=== PATIENT | female | born 1990 | race Caucasian/White ===

== ENCOUNTER → 2016-09-25 | Outpatient (CLI) | payer SELFPAY ==
[2016-09-25 15:23] LABS: CHLAM PCR NOT DETECTED (NOT DETECT)
== END ==
LOC: LAB 13:39
PROVIDERS: ATTEND Nurse Practitioner Acute Care
DX: N89.8 Other specified noninflammatory disorders of vagina (principal)
CPT/HCPCS: 87086; 87088; 87210; 87491; 87591

== ENCOUNTER 2017-07-11 19:39 | Emergency (ER) | payer MEDICAID, OTHER ==
[2017-07-11] MEDS ORDERED: ONDANSETRON HCL 8 MG TABLET ONE (20:30)
[2017-07-11] MEDS ORDERED: ACETAMINOPHEN 325 MG TABLET ONE (20:30)
[2017-07-12 02:45] LABS: ABSOLUTE EOSINOPHILS # (AUTO) 0.5 10^3/uL (0.0-0.6); ABSOLUTE LYMPHOCYTES (AUTO) 2.4 10^3/uL (0.5-4.7); ABSOLUTE MONOCYTES (AUTO) 0.8 10^3/uL (0.1-1.4); ABSOLUTE NEUT (AUTO) 6.8 10^3/uL (1.7-8.2); BASOPHILS % (AUTO) 0.4 % (0-2); HEMATOCRIT 36.6 % (36.0-47.0); HEMOGLOBIN 11.9 g/dL (12.0-15.5); LYMPHOCYTES % (AUTO) 22.5 % (13-45); MEAN CORPUSCULAR HEMOGLOBIN 24.6 pg (27.0-33.4); MEAN CORPUSCULAR HGB CONC 32.6 g/dL (32.0-36.0); MEAN CORPUSCULAR VOLUME 75 fl (80-97); MONOCYTES % (AUTO) 7.3 % (3-13); PLATELET COUNT 227 10^3/uL (150-450); RED BLOOD COUNT 4.85 10^6/uL (3.72-5.28); RED CELL DISTRIBUTION WIDTH 15.3 % (11.5-14.0); SEGMENTED NEUTROPHILS % (AUTO) 64.8 % (42-78); TOTAL CELLS COUNTED % (AUTO) 100 %; WHITE BLOOD COUNT 10.5 10^3/uL (4.0-10.5)
--- NOTE | 2017-07-12 03:14 | RADIOLOGY REPORT (SQ) ---
EXAM DESCRIPTION: U/S OB TRANSVAGINAL W/O DOP CLINICAL HISTORY: 26 years, Female, BLEEDING, LLQ PAIN COMPARISON: None. TECHNIQUE: Transvaginal. LIMITATIONS: None. FINDINGS: No definite intrauterine identified. There is an intrauterine sac and possible decidual reaction which may represent a gestational sac. No yolk sac. No pole. No cardiac flicker. If viable, this intrauterine sac has a mean sac diameter of 7.5 mm which would correspond with a gestational age of five weeks and four days. 2.8 cm right ovary, and 3.2 cm left ovary appear unremarkable. No free fluid. IMPRESSION: No definite intrauterine . Differential diagnosis includes very early viable intrauterine gestational sac, gestational loss, or occult ectopic gestation. 48 to 72 hour laboratory/sonographic surveillance recommended. 2010 [employer]- All Rights Reserved
[2017-07-12 09:10] LABS: CALCIUM 9.7 mg/dL (8.4-10.2)
[2017-07-12 09:11] LABS: ALBUMIN 4.1 g/dL (3.5-5.0); ANION GAP 11 (5-19); ASPARTATE AMINO TRANSFERASE 16 U/L (14-36); BLOOD UREA NITROGEN 10 mg/dL (7-20); CARBON DIOXIDE 26 mmol/L (22-30); CHLORIDE 102 mmol/L (98-107); GLUCOSE 98 mg/dL (75-110); POTASSIUM 4.2 mmol/L (3.6-5.0); SODIUM 139.1 mmol/L (137-145)
[2017-07-12 09:12] LABS: ALANINE AMINOTRANSFERASE 24 U/L (9-52); ALKALINE PHOSPHATASE 64 U/L (38-126); BILIRUBIN,DIRECT 0.2 mg/dL (0.0-0.4); BILIRUBIN,TOTAL 0.2 mg/dL (0.2-1.3)
== END 2017-07-11 22:00 | disposition home or self-care (01) ==
LOC: ER 19:39
DX: O26.91 Pregnancy related conditions, unspecified, first trimester (principal); R10.2 Pelvic and perineal pain
CPT/HCPCS: 36415; 76817; 80053; 84702; 85025; 99284

== ENCOUNTER 2017-08-16 13:38 | Emergency (ER) | payer OTHER, MEDICAID ==
--- NOTE | 2017-08-16 15:14 | EKG REPORT ---
SEVERITY:- NORMAL ECG - SINUS RHYTHM : Confirmed by: Lucius Marshall 16-Aug-2017 15:13:28
[2017-08-16 15:37] LABS: ABSOLUTE EOSINOPHILS # (AUTO) 0.3 10^3/uL (0.0-0.6); ABSOLUTE LYMPHOCYTES (AUTO) 1.6 10^3/uL (0.5-4.7); ABSOLUTE MONOCYTES (AUTO) 0.8 10^3/uL (0.1-1.4); ABSOLUTE NEUT (AUTO) 7.6 10^3/uL (1.7-8.2); BASOPHILS % (AUTO) 0.4 % (0-2); EOSINOPHILS % (AUTO) 3.1 % (0-6); HEMATOCRIT 37.3 % (36.0-47.0); HEMOGLOBIN 12.1 g/dL (12.0-15.5); LYMPHOCYTES % (AUTO) 15.5 % (13-45); MEAN CORPUSCULAR HEMOGLOBIN 24.4 pg (27.0-33.4); MEAN CORPUSCULAR HGB CONC 32.5 g/dL (32.0-36.0); MEAN CORPUSCULAR VOLUME 75 fl (80-97); MONOCYTES % (AUTO) 7.5 % (3-13); PLATELET COUNT 221 10^3/uL (150-450); RED BLOOD COUNT 4.95 10^6/uL (3.72-5.28); RED CELL DISTRIBUTION WIDTH 15.6 % (11.5-14.0); SEGMENTED NEUTROPHILS % (AUTO) 73.5 % (42-78); TOTAL CELLS COUNTED % (AUTO) 100 %; WHITE BLOOD COUNT 10.4 10^3/uL (4.0-10.5)
[2017-08-16 15:43] LABS: AMORPHOUS SEDIMENT,URINE TRACE /HPF; APPEARANCE,URINE SLIGHTLY-CLOUDY; BILIRUBIN,URINE NEGATIVE (NEGATIVE); COLOR,URINE YELLOW; GLUCOSE, URINE NEGATIVE (NEGATIVE); KETONES,URINE NEGATIVE (NEGATIVE); LEUKOCYTE ESTERASE,URINE LARGE (NEGATIVE); NITRITE,URINE NEGATIVE (NEGATIVE); PROTEIN,URINE NEGATIVE (NEGATIVE); URINE SPECIFIC GRAVITY 1.006; UROBILINOGEN,URINE NEGATIVE mg/dL (<2.0)
[2017-08-16 15:53] LABS: ALANINE AMINOTRANSFERASE 25 U/L (9-52); ALBUMIN 4.5 g/dL (3.5-5.0); ALKALINE PHOSPHATASE 67 U/L (38-126); ANION GAP 12 (5-19); ASPARTATE AMINO TRANSFERASE 16 U/L (14-36); BILIRUBIN,TOTAL 0.3 mg/dL (0.2-1.3); BLOOD UREA NITROGEN 7 mg/dL (7-20); CALCIUM 10.1 mg/dL (8.4-10.2); CARBON DIOXIDE 24 mmol/L (22-30); CHLORIDE 103 mmol/L (98-107); GLUCOSE 91 mg/dL (75-110); POTASSIUM 4.1 mmol/L (3.6-5.0); SODIUM 138.5 mmol/L (137-145); TOTAL PROTEIN 7.3 g/dL (6.3-8.2)
--- NOTE | 2017-08-16 16:52 | ER Document Report ---
ED Dizziness/Weakness - General Chief Complaint: General Weakness Stated Complaint: WEAK FEELING Time Seen by Provider: 08/16/17 14:54 Mode of Arrival: Ambulatory Information source: Patient Notes: Patient presents complaining of generalized fatigue and weakness. She also is approximately 3 months she states. She denies any vaginal bleeding or discharge. No significant abdominal pain. Symptoms are worse with exertion and better with rest. There is no radiation symptoms. They are mild to moderate and intermittent. Some nausea and vomiting but no diarrhea. TRAVEL OUTSIDE OF THE [place] IN LAST 30 DAYS: No - Related Data Allergies/Adverse Reactions: No Known Allergies Allergy (Verified 08/16/17 14:04) Past Medical History - General Information source: Patient - Social History Smoking Status: Never Smoker Chew tobacco use (# tins/day): No Frequency of alcohol use: None Drug Abuse: None Family History: Arthritis, CAD, COPD, CVA, DM, Hyperlipidemia, Hypertension, Malignancy Patient has suicidal ideation: No Patient has homicidal ideation: No - Past Medical History Cardiac Medical History: Reports: Hx Hypertension Pulmonary Medical History: Reports: Hx Asthma Renal/ Medical History: Denies: Hx Peritoneal Dialysis GI Medical History: Reports: Hx Irritable Bowel Psychiatric Medical History: Reports: Hx Anxiety, Hx Post Traumatic Stress Disorder - Immunizations Hx Diphtheria, Pertussis, Tetanus Vaccination: Yes Review of Systems - Review of Systems Constitutional: Malaise, Weakness Cardiovascular: Palpitations. denies: Chest pain Respiratory: denies: Cough, Short of breath Gastrointestinal: Nausea, Vomiting -: Yes All other systems reviewed and negative Physical Exam - Vital signs Vitals: Temp Pulse Resp BP Pulse Ox 98.2 F 85 18 101/66 100 08/16/17 14:21 08/16/17 14:21 08/16/17 14:21 08/16/17 14:21 08/16/17 14:21 Interpretation: Normal - General General appearance: Appears well, Alert - HEENT Head: Normocephalic, Atraumatic Eyes: Normal Pupils: PERRL - Respiratory Respiratory status: No respiratory distress Chest status: Nontender Breath sounds: Normal Chest palpation: Normal - Cardiovascular Rhythm: Regular Heart sounds: Normal auscultation Murmur: No - Abdominal Inspection: Normal Distension: No distension Bowel sounds: Normal Tenderness: Nontender Organomegaly: No organomegaly - Back Back: Normal, Nontender - Extremities General upper extremity: Normal inspection, Nontender, Normal color, Normal ROM , Normal temperature General lower extremity: Normal inspection, Nontender, Normal color, Normal ROM , Normal temperature, Normal weight bearing. No: Angelika's sign - Neurological Neuro grossly intact: Yes Cognition: Normal Orientation: AAOx4 [place] Coma Scale Eye Opening: Spontaneous Nick Coma Scale Verbal: Oriented [place] Coma Scale Motor: Obeys Commands Nick Coma Scale Total: 15 Speech: Normal Motor strength normal: LUE, RUE, LLE, RLE Sensory: Normal - Psychological Associated symptoms: Normal affect, Normal mood - Skin Skin Temperature: Warm Skin Moisture: Dry Skin Color: Normal Course - Vital Signs Vital signs: Temp Pulse Resp BP Pulse Ox 98.2 F 85 18 101/66 100 08/16/17 14:21 08/16/17 14:21 08/16/17 14:21 08/16/17 14:21 08/16/17 14:21 - Laboratory Result Diagrams: 08/16/17 15:18 08/16/17 15:18 Laboratory results interpreted by me: 08/16/17 08/16/17 15:18 15:18 MCV 75 L MCH 24.4 L RDW 15.6 H Ur Leukocyte Esterase LARGE H Discharge - Discharge Clinical Impression: UTI (urinary tract infection) Qualifiers: Urinary tract infection type: site unspecified Hematuria presence: with hematuria Qualified Code(s): N39.0 - Urinary tract infection, site not specified ; R31.9 - Hematuria, unspecified; R31.9 - Hematuria, unspecified Condition: Stable Disposition: HOME, SELF-CARE Instructions: Urinary Tract Infection ([facility]) Additional Instructions: Please 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 If you continue to have palpitations, then please discuss referral to cardiology for possible event monitoring. Prescriptions: Metoclopramide HCl [Reglan 10 mg Tablet] 1 - 2 tab PO Q6 #25 tablet Nitrofurantoin Monohyd/M-Cryst [Macrobid 100 mg Capsule] 100 mg PO BID 7 Days # 14 capsule Forms: Return to Work
[2017-08-16 16:58] VITALS: BP 110/67
== END 2017-08-16 16:58 | disposition home or self-care (01) ==
LOC: ER 13:38
DX: N39.0 Urinary tract infection, site not specified (principal); R31.9 Hematuria, unspecified; R53.1 Weakness; R53.83 Other fatigue; R11.2 Nausea with vomiting, unspecified
CPT/HCPCS: 36415; 80053; 81001; 85025; 93005; 93010; 99285

== ENCOUNTER → 2017-09-21 | Outpatient (CLI) | payer MEDICAID ==
[2017-09-21 19:40] LABS: BACTERIA (WET MOUNT) 3+ BACTERIA SEEN; EPITHELIALS (WET MOUNT) 4+ EPITHELIALS SEEN; T.VAGINALIS (WET MOUNT) NO TRICHOMONAS SEEN; WBCS (WET MOUNT) 4+ WBCS SEEN; YEAST (WET MOUNT) NO YEAST SEEN
[2017-09-21 21:11] LABS: CHLAM PCR NOT DETECTED (NOT DETECT); GON PCR NOT DETECTED (NOT DETECT)
== END ==
LOC: LAB 19:18
PROVIDERS: ATTEND Nurse Practitioner Acute Care
DX: N89.8 Other specified noninflammatory disorders of vagina (principal); R30.0 Dysuria
CPT/HCPCS: 87086; 87088; 87186; 87210; 87491; 87591

== ENCOUNTER 2017-11-10 14:04 | Outpatient (CLI) | payer MEDICAID ==
[2017-11-10 15:11] LABS: APPEARANCE,URINE SLIGHTLY-CLOUDY; BILIRUBIN,URINE NEGATIVE (NEGATIVE); COLOR,URINE STRAW; GLUCOSE, URINE NEGATIVE (NEGATIVE); KETONES,URINE NEGATIVE (NEGATIVE); LEUKOCYTE ESTERASE,URINE MODERATE (NEGATIVE); NITRITE,URINE NEGATIVE (NEGATIVE); PROTEIN,URINE NEGATIVE (NEGATIVE); URINE SPECIFIC GRAVITY 1.005; UROBILINOGEN,URINE NEGATIVE mg/dL (<2.0)
[2017-11-10] MEDS ORDERED: ACETAMINOPHEN 325 MG TABLET ONE (15:47)
[2017-11-10 15:56] LABS: URINE AMPHETAMINES SCREEN NEGATIVE; URINE BARBITURATES SCREEN NEGATIVE; URINE BENZODIAZEPINES SCREEN NEGATIVE; URINE MARIJUANA (THC) SCREEN NEGATIVE; URINE METHADONE SCREEN NEGATIVE; URINE PHENCYCLIDINE SCREEN NEGATIVE
[2017-11-10 16:21] LABS: URINE COCAINE SCREEN NEGATIVE
== END 2017-11-10 16:00 | disposition home or self-care (01) ==
LOC: LC 14:04
PROVIDERS: ATTEND Obstetrics & Gynecology Gynecology
PROC: 4A1HXCZ Monitoring of Products of Conception, Cardiac Rate, External Approach (ICD-10-PCS; principal; 2017-11-10)
DX: Z34.92 Encounter for supervision of normal pregnancy, unspecified, second trimester (principal)
CPT/HCPCS: 59899; 81001; 80307; J3490

== ENCOUNTER 2017-11-19 19:53 | Outpatient (CLI) | payer MEDICAID ==
[2017-11-19 20:29] LABS: APPEARANCE,URINE CLEAR; BILIRUBIN,URINE NEGATIVE (NEGATIVE); COLOR,URINE YELLOW; GLUCOSE, URINE NEGATIVE (NEGATIVE); KETONES,URINE NEGATIVE (NEGATIVE); LEUKOCYTE ESTERASE,URINE TRACE (NEGATIVE); NITRITE,URINE NEGATIVE (NEGATIVE); PROTEIN,URINE NEGATIVE (NEGATIVE); URINE SPECIFIC GRAVITY 1.019
[2017-11-19 20:42] LABS: URINE AMPHETAMINES SCREEN NEGATIVE; URINE BARBITURATES SCREEN NEGATIVE; URINE BENZODIAZEPINES SCREEN NEGATIVE; URINE COCAINE SCREEN NEGATIVE; URINE MARIJUANA (THC) SCREEN NEGATIVE; URINE METHADONE SCREEN NEGATIVE; URINE PHENCYCLIDINE SCREEN NEGATIVE
== END 2017-11-19 21:08 | disposition home or self-care (01) ==
LOC: LC 19:53
PROVIDERS: ATTEND Obstetrics & Gynecology Gynecology
PROC: 4A1HXCZ Monitoring of Products of Conception, Cardiac Rate, External Approach (ICD-10-PCS; principal; 2017-11-19)
DX: O47.02 False labor before 37 completed weeks of gestation, second trimester (principal); Z3A.24 24 weeks gestation of pregnancy
CPT/HCPCS: 80307; 81001

== ENCOUNTER 2017-12-15 16:37 | Emergency (ER) | payer MEDICAID ==
[2017-12-15] MEDS ORDERED: NORMAL SALINE 1000 ML 1,000 ML IV ONE (17:40)
--- NOTE | 2017-12-15 17:42 | ER Document Report ---
ED Medical Screen (RME) - General Chief Complaint: Weakness Stated Complaint: WEAKNESS/BLURRY VISION Time Seen by Provider: 12/15/17 17:39 TRAVEL OUTSIDE OF THE [place] IN LAST 30 DAYS: No - HPI Notes: 12/15/17 17:41 Patient coming in for weakness blurry vision recently diagnosed gestational diabetes started on insulin states symptoms worsened today his blood sugars been running between 100-200s. Patient states great confusion about her insulin dosing. Patient otherwise denies any fevers chills nausea vomiting diarrhea - Related Data Allergies/Adverse Reactions: No Known Allergies Allergy (Verified 12/15/17 17:34) Past Medical History - Past Medical History Cardiac Medical History: Reports: Hx Hypertension Pulmonary Medical History: Reports: Hx Asthma Renal/ Medical History: Denies: Hx Peritoneal Dialysis GI Medical History: Reports: Hx Irritable Bowel Psychiatric Medical History: Reports: Hx Anxiety, Hx Post Traumatic Stress Disorder - Immunizations Hx Diphtheria, Pertussis, Tetanus Vaccination: Yes Review of Systems - Review of Systems Constitutional: Weakness, Other - Dizziness Physical Exam - General General appearance: Appears well In distress: None Doctor's Discharge - Discharge Referrals: VIRGINIE GONZALEZ MD [Primary Care Provider] - Follow up as needed
[2017-12-15 18:36] LABS: ABSOLUTE EOSINOPHILS # (AUTO) 0.3 10^3/uL (0.0-0.6); ABSOLUTE LYMPHOCYTES (AUTO) 1.3 10^3/uL (0.5-4.7); ABSOLUTE MONOCYTES (AUTO) 0.9 10^3/uL (0.1-1.4); ABSOLUTE NEUT (AUTO) 6.2 10^3/uL (1.7-8.2); BASOPHILS % (AUTO) 0.5 % (0-2); HEMATOCRIT 34.4 % (36.0-47.0); HEMOGLOBIN 11.3 g/dL (12.0-15.5); LYMPHOCYTES % (AUTO) 15.4 % (13-45); MEAN CORPUSCULAR HEMOGLOBIN 24.9 pg (27.0-33.4); MEAN CORPUSCULAR HGB CONC 32.8 g/dL (32.0-36.0); MEAN CORPUSCULAR VOLUME 76 fl (80-97); MONOCYTES % (AUTO) 9.9 % (3-13); PLATELET COUNT 135 10^3/uL (150-450); RED BLOOD COUNT 4.54 10^6/uL (3.72-5.28); SEGMENTED NEUTROPHILS % (AUTO) 71.2 % (42-78); TOTAL CELLS COUNTED % (AUTO) 100 %; WHITE BLOOD COUNT 8.7 10^3/uL (4.0-10.5)
[2017-12-15 18:49] LABS: APPEARANCE,URINE CLEAR; BILIRUBIN,URINE NEGATIVE (NEGATIVE); COLOR,URINE YELLOW; GLUCOSE, URINE NEGATIVE (NEGATIVE); KETONES,URINE NEGATIVE (NEGATIVE); LEUKOCYTE ESTERASE,URINE MODERATE (NEGATIVE); NITRITE,URINE NEGATIVE (NEGATIVE); PROTEIN,URINE NEGATIVE (NEGATIVE); UROBILINOGEN,URINE NEGATIVE mg/dL (<2.0)
[2017-12-15 18:56] LABS: ALANINE AMINOTRANSFERASE 18 U/L (9-52); ALBUMIN 3.6 g/dL (3.5-5.0); ALKALINE PHOSPHATASE 62 U/L (38-126); ANION GAP 10 (5-19); ASPARTATE AMINO TRANSFERASE 20 U/L (14-36); BILIRUBIN,DIRECT 0.2 mg/dL (0.0-0.4); BILIRUBIN,TOTAL 0.3 mg/dL (0.2-1.3); BLOOD UREA NITROGEN 10 mg/dL (7-20); CALCIUM 9.6 mg/dL (8.4-10.2); CARBON DIOXIDE 24 mmol/L (22-30); CHLORIDE 105 mmol/L (98-107); GLUCOSE 99 mg/dL (75-110); POTASSIUM 4.1 mmol/L (3.6-5.0); SODIUM 138.6 mmol/L (137-145); TOTAL PROTEIN 6.9 g/dL (6.3-8.2)
[2017-12-15] MEDS ORDERED: CEPHALEXIN 500 MG CAPSULE PO ONE (19:38)
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
[2017-12-15 19:43] VITALS: BP 102/67
== END 2017-12-15 19:47 | disposition home or self-care (01) ==
LOC: ER 16:37
DX: O26.892 Other specified pregnancy related conditions, second trimester (principal); R42 Dizziness and giddiness; R82.71 Bacteriuria; O24.414 Gestational diabetes mellitus in pregnancy, insulin controlled; O16.2 Unspecified maternal hypertension, second trimester; O99.512 Diseases of the respiratory system complicating pregnancy, second trimester; J45.909 Unspecified asthma, uncomplicated
CPT/HCPCS: 99284; 96360; 36415; 82962; 85025; 80053; 81001; J7030

== ENCOUNTER 2017-12-21 23:43 | Emergency (ER) | payer MEDICAID ==
--- NOTE | 2017-12-22 09:38 | EKG REPORT ---
SEVERITY:- BORDERLINE ECG - SINUS RHYTHM PROBABLE LEFT ATRIAL ABNORMALITY : Confirmed by: Lucius Marshall 22-Dec-2017 09:37:36
== END 2017-12-22 01:30 | disposition left against medical advice (07) ==
LOC: ER 23:43
DX: Z53.21 Procedure and treatment not carried out due to patient leaving prior to being seen by health care provider (principal)
CPT/HCPCS: 93005; 93010

== ENCOUNTER 2018-01-09 08:58 | Outpatient (CLI) | payer OTHER, MEDICAID ==
[2018-01-09 10:19] LABS: APPEARANCE,URINE CLOUDY; BILIRUBIN,URINE NEGATIVE (NEGATIVE); COLOR,URINE YELLOW; GLUCOSE, URINE NEGATIVE (NEGATIVE); KETONES,URINE NEGATIVE (NEGATIVE); LEUKOCYTE ESTERASE,URINE LARGE (NEGATIVE); NITRITE,URINE NEGATIVE (NEGATIVE); PROTEIN,URINE 30 mg/dL (NEGATIVE); URINE SPECIFIC GRAVITY 1.018; UROBILINOGEN,URINE NEGATIVE mg/dL (<2.0)
[2018-01-09 10:46] LABS: URINE AMPHETAMINES SCREEN NEGATIVE; URINE BARBITURATES SCREEN NEGATIVE; URINE BENZODIAZEPINES SCREEN NEGATIVE; URINE COCAINE SCREEN NEGATIVE; URINE MARIJUANA (THC) SCREEN NEGATIVE; URINE METHADONE SCREEN NEGATIVE; URINE PHENCYCLIDINE SCREEN NEGATIVE
--- NOTE | 2018-01-09 11:37 | RADIOLOGY REPORT (SQ) ---
EXAM DESCRIPTION: U/S OB LIMITED COMPLETED DATE/TIME: 01/09/2018 11:19 am REASON FOR STUDY: vaginal pain/pressure, need cervical length COMPARISON: None. TECHNIQUE: Limited transvaginal and transabdominal grayscale ultrasound for evaluation of specific r equested obstetrical parameters. LIMITATIONS: Patient body habitus and overlying bowel gas FINDINGS: CERVICAL LENGTH: The cervix is not well visualized secondary to patient body habitus howev er the cervical length appears to be 4.4 cm and the cervix appears to be closed. FHR: 143 beats per minute. PRESENTATION: Transverse. OTHER: No other significant findings. IMPRESSION: LIMITED OBSTETRICAL ULTRASOUND WITH MEASURED PARAMETERS DELINEATED ABOVE. Trimester of : Third trimester - 28 weeks to delivery. TECHNICAL DOCUMENTATION: JOB ID: [id number] [employer]- All Rights Reserved Reading location - IP/workstation name: [email or web address]
== END 2018-01-09 14:30 | disposition home or self-care (01) ==
LOC: LC 08:58
PROVIDERS: ATTEND Student in an Organized Health Care Education/Training Program
PROC: 4A1HXCZ Monitoring of Products of Conception, Cardiac Rate, External Approach (ICD-10-PCS; principal; 2018-01-09)
DX: O26.893 Other specified pregnancy related conditions, third trimester (principal); R10.2 Pelvic and perineal pain; Z3A.30 30 weeks gestation of pregnancy
CPT/HCPCS: 76815; 80307; 81001; 82731; 87081; 87086

== ENCOUNTER 2018-01-17 15:44 | Outpatient (CLI) | payer OTHER, MEDICAID | END 2018-01-17 16:42 | disposition home or self-care (01) | LOC: LC 15:44 | PROVIDERS: ATTEND Obstetrics & Gynecology | PROC: 4A1HXCZ Monitoring of Products of Conception, Cardiac Rate, External Approach (ICD-10-PCS; principal; 2018-01-17) | DX: O24.419 Gestational diabetes mellitus in pregnancy, unspecified control (principal); Z3A.32 32 weeks gestation of pregnancy | CPT/HCPCS: 59025 ==

== ENCOUNTER 2018-01-25 10:37 | Outpatient (CLI) | payer OTHER, MEDICAID ==
--- NOTE | 2018-01-25 10:51 | Non Stress Test Report ---
Non Stress Test Datetime Report Generated by CPN: 01/25/2018 10:51 DEMOGRAPHIC EGA NST: 32.0 INDICATION Indication for Study: Diabetes Mellitus; Ordered by Provider VITAL SIGNS Pulse - NST: 105 RESP - NST: 16 NBPSYS NST: 80 NBPDIA NST: 55 MONITORING Monitor Explained: Monitor Explained; Test Explained; Patient Verbalized Understanding Time on Monitor: 01/17/2018 15:58 Time off Monitor: 01/17/2018 16:39 NST Duration: 41 NST INTERVENTIONS NST Interventions: PO Hydration; Reposition Patient Physician Notified NST: J PIMENTEL, CNM REVIEWED STRIP BABY A: [id number] BABY A Movement : Present Contraction Frequency : OCC FHR Baseline : 135 Accelerations : 15X15 Decelerations : None Variability : Moderate 6-25bpm NST Review: Meets Criteria for Reactive NST NST Review and Verified By : Ramy Nelson RN NST Results: Reactive NST REPORT Report Trigger: Send Report
--- NOTE | 2018-01-25 12:19 | Non Stress Test Report ---
Non Stress Test Datetime Report Generated by CPN: 01/25/2018 12:19 DEMOGRAPHIC EGA NST: 33.1 INDICATION Indication for Study: Diabetes Mellitus; Ordered by Provider MONITORING Monitor Explained: Monitor Explained; Test Explained; Patient Verbalized Understanding Time on Monitor: 01/25/2018 10:54 Time off Monitor: 01/25/2018 12:08 NST Duration: 74 NST INTERVENTIONS NST Interventions: PO Hydration; Reposition Patient Physician Notified NST: J PIMENTEL, CNM BABY A Movement : Present Contraction Frequency : IRREG FHR Baseline : 135 Accelerations : 15X15 Decelerations : None Variability : Moderate 6-25bpm NST Review: Meets Criteria for Reactive NST NST Review and Verified By : MEAGHAN Murcia Results: Reactive NST REPORT Report Trigger: Send Report
== END 2018-01-25 12:15 | disposition home or self-care (01) ==
LOC: LC 10:37
PROVIDERS: ATTEND Obstetrics & Gynecology
PROC: 4A1HXCZ Monitoring of Products of Conception, Cardiac Rate, External Approach (ICD-10-PCS; principal; 2018-01-25)
DX: O24.419 Gestational diabetes mellitus in pregnancy, unspecified control (principal); Z3A.33 33 weeks gestation of pregnancy
CPT/HCPCS: 59025

== ENCOUNTER 2018-01-28 16:38 | Emergency (ER) | payer OTHER, MEDICAID ==
[2018-01-28 16:45] VITALS: BP 114/74
[2018-01-28] MEDS ORDERED: ACETAMINOPHEN 325 MG TABLET PO ONE (17:12)
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
== END 2018-01-28 17:40 | disposition admitted as inpatient to this hospital (09) ==
LOC: ER 16:38
DX: O9A.213 Injury, poisoning and certain other consequences of external causes complicating pregnancy, third trimester (principal); S13.9XXA Sprain of joints and ligaments of unspecified parts of neck, initial encounter; V43.52XA Car driver injured in collision with other type car in traffic accident, initial encounter; O36.8130 Decreased fetal movements, third trimester, not applicable or unspecified; O99.513 Diseases of the respiratory system complicating pregnancy, third trimester; J45.909 Unspecified asthma, uncomplicated; O16.3 Unspecified maternal hypertension, third trimester; Z3A.36 36 weeks gestation of pregnancy
CPT/HCPCS: 99283; L0120

== ENCOUNTER 2018-01-28 17:28 | Outpatient (CLI) | payer OTHER, MEDICAID ==
[2018-01-28] MEDS ORDERED: INSULIN REG, HUMAN 100 UNIT/ML 3 ML VIAL (PYX) SUBCUT ONE (18:44)
[2018-01-28] MEDS ORDERED: INSULIN NPH (ISOPHANE), HUMAN 100 UNIT/ML 3 ML SUBCUT ONE (18:46)
[2018-01-28] MEDS ORDERED: ACETAMINOPHEN 325 MG TABLET PO ONE (19:11)
[2018-01-28] MEDS ORDERED: ACETAMINOPHEN 325 MG TABLET ONE (19:15)
[2018-01-28] MEDS ORDERED: INSULIN NPH (ISOPHANE), HUMAN 100 UNIT/ML 3 ML ONE (19:26)
[2018-01-28] MEDS ORDERED: INSULIN REG, HUMAN 100 UNIT/ML 3 ML VIAL (PYX) ONE (19:27)
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
[2018-01-28 22:34] LABS: APPEARANCE,URINE SLIGHTLY-CLOUDY; BILIRUBIN,URINE NEGATIVE (NEGATIVE); COLOR,URINE YELLOW; GLUCOSE, URINE NEGATIVE (NEGATIVE); KETONES,URINE NEGATIVE (NEGATIVE); LEUKOCYTE ESTERASE,URINE MODERATE (NEGATIVE); NITRITE,URINE NEGATIVE (NEGATIVE); PROTEIN,URINE NEGATIVE (NEGATIVE); URINE SPECIFIC GRAVITY 1.012; UROBILINOGEN,URINE NEGATIVE mg/dL (<2.0)
[2018-01-28 22:45] LABS: URINE AMPHETAMINES SCREEN NEGATIVE; URINE BARBITURATES SCREEN NEGATIVE; URINE BENZODIAZEPINES SCREEN NEGATIVE; URINE COCAINE SCREEN NEGATIVE; URINE MARIJUANA (THC) SCREEN NEGATIVE; URINE METHADONE SCREEN NEGATIVE; URINE PHENCYCLIDINE SCREEN NEGATIVE
== END 2018-01-29 01:27 | disposition home or self-care (01) ==
LOC: LC 17:28
PROVIDERS: ATTEND Obstetrics & Gynecology
PROC: 4A1HXCZ Monitoring of Products of Conception, Cardiac Rate, External Approach (ICD-10-PCS; principal; 2018-01-28)
DX: O47.03 False labor before 37 completed weeks of gestation, third trimester (principal); O24.414 Gestational diabetes mellitus in pregnancy, insulin controlled; Z3A.33 33 weeks gestation of pregnancy
CPT/HCPCS: 59025; 87086; 82962; 81001; 80307; 76815; J1815 ×2

== ENCOUNTER 2018-02-04 13:22 | Outpatient (CLI) | payer MEDICAID ==
--- NOTE | 2018-02-04 14:34 | Non Stress Test Report ---
Non Stress Test Datetime Report Generated by CPN: 02/04/2018 14:34 DEMOGRAPHIC EGA NST: 34.4 INDICATION Indication for Study: Gestational Hypertension; Diabetes Mellitus VITAL SIGNS Temperature - NST: 97.7 Pulse - NST: 90 RESP - NST: 18 NBPSYS NST: 93 NBPDIA NST: 54 MONITORING Monitor Explained: Monitor Explained; Test Explained; Patient Verbalized Understanding Time on Monitor: 02/04/2018 13:37 Time off Monitor: 02/04/2018 14:02 NST Duration: 25 NST INTERVENTIONS NST Interventions: PO Hydration; Reposition Patient Physician Notified NST: Pallavi Ritchie CNM BABY A Movement : Present Contraction Frequency : irritability FHR Baseline : 135 Accelerations : 15X15 Decelerations : None Variability : Moderate 6-25bpm NST Review: Meets Criteria for Reactive NST NST Review and Verified By : Evelia Tilley RN/Jerald mAes RNC NST Results: Reactive NST REPORT Report Trigger: Send Report
== END 2018-02-04 14:01 | disposition home or self-care (01) ==
LOC: LC 13:22
PROVIDERS: ATTEND Student in an Organized Health Care Education/Training Program
PROC: 4A1HXCZ Monitoring of Products of Conception, Cardiac Rate, External Approach (ICD-10-PCS; principal; 2018-02-04)
DX: O13.3 Gestational [pregnancy-induced] hypertension without significant proteinuria, third trimester (principal); Z3A.34 34 weeks gestation of pregnancy
CPT/HCPCS: 59025

== ENCOUNTER 2018-02-13 06:30 | Inpatient (IN) | payer MEDICAID ==
[2018-02-13 07:27] LABS: APPEARANCE,URINE CLOUDY; BILIRUBIN,URINE NEGATIVE (NEGATIVE); COLOR,URINE YELLOW; GLUCOSE, URINE NEGATIVE (NEGATIVE); KETONES,URINE NEGATIVE (NEGATIVE); LEUKOCYTE ESTERASE,URINE LARGE (NEGATIVE); NITRITE,URINE NEGATIVE (NEGATIVE); PROTEIN,URINE 30 mg/dL (NEGATIVE); URINE AMPHETAMINES SCREEN NEGATIVE; URINE BARBITURATES SCREEN NEGATIVE; URINE BENZODIAZEPINES SCREEN NEGATIVE; URINE COCAINE SCREEN NEGATIVE; URINE MARIJUANA (THC) SCREEN NEGATIVE; URINE METHADONE SCREEN NEGATIVE; URINE PHENCYCLIDINE SCREEN NEGATIVE; URINE SPECIFIC GRAVITY 1.013; UROBILINOGEN,URINE NEGATIVE mg/dL (<2.0)
[2018-02-13] MEDS ORDERED: MORPHINE SULFATE 10 MG/ML INJ ONE ×2 (10:33→21:33)
[2018-02-13] MEDS ORDERED: MORPHINE SULFATE 10 MG/ML INJ IM PRN (11:19)
--- NOTE | 2018-02-13 11:54 | RADIOLOGY REPORT (SQ) ---
EXAM DESCRIPTION: U/S OB LIMITED COMPLETED DATE/TIME: 02/13/2018 11:27 am REASON FOR STUDY: estimated weight for GDM, growth COMPARISON: 01/28/2018 TECHNIQUE: Limited transvaginal grayscale ultrasound for evaluation of specific requested obstetrica l parameters. LIMITATIONS: None. FINDINGS: heart rate 139. Estimated weight 3614 g. Estimated gestational age by ultraso und 38 weeks 4 days. Vertex presentation. IMPRESSION: LIMITED OBSTETRICAL ULTRASOUND WITH MEASURED PARAMETERS DELINEATED ABOVE. Trimester of : Third trimester - 28 weeks to delivery. TECHNICAL DOCUMENTATION: JOB ID: [id number] [employer]- All Rights Reserved Reading location - IP/workstation name: [email or web address]
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
[2018-02-13 13:13] LABS: ABSOLUTE EOSINOPHILS # (AUTO) 0.1 10^3/uL (0.0-0.6); ABSOLUTE LYMPHOCYTES (AUTO) 1.5 10^3/uL (0.5-4.7); ABSOLUTE MONOCYTES (AUTO) 0.8 10^3/uL (0.1-1.4); ABSOLUTE NEUT (AUTO) 5.9 10^3/uL (1.7-8.2); BASOPHILS % (AUTO) 0.2 % (0-2); EOSINOPHILS % (AUTO) 1.8 % (0-6); HEMATOCRIT 33.1 % (36.0-47.0); HEMOGLOBIN 10.3 g/dL (12.0-15.5); LYMPHOCYTES % (AUTO) 17.6 % (13-45); MEAN CORPUSCULAR HEMOGLOBIN 23.1 pg (27.0-33.4); MEAN CORPUSCULAR HGB CONC 31.3 g/dL (32.0-36.0); MEAN CORPUSCULAR VOLUME 74 fl (80-97); MONOCYTES % (AUTO) 9.5 % (3-13); PLATELET COUNT 104 10^3/uL (150-450); RED BLOOD COUNT 4.48 10^6/uL (3.72-5.28); SEGMENTED NEUTROPHILS % (AUTO) 70.9 % (42-78); TOTAL CELLS COUNTED % (AUTO) 100 %; WHITE BLOOD COUNT 8.4 10^3/uL (4.0-10.5)
[2018-02-13] MEDS ORDERED: INSULIN REGULAR HUMAN SUBCUT SCH (16:00)
[2018-02-13] MEDS ORDERED: [UNRECOGNIZED DRUG - OTHER] SUBCUT SCH (16:00)
[2018-02-13] MEDS ORDERED: INSULIN NPH (ISOPHANE), HUMAN 100 UNIT/ML 3 ML ONE (18:08)
[2018-02-13] MEDS ORDERED: INSULIN REG, HUMAN 100 UNIT/ML 3 ML VIAL (PYX) ONE (18:08)
[2018-02-13] MEDS: INSULIN REG, HUMAN 100 UNIT/ML 3 ML VIAL (PYX) SUBCUT SCH (18:16)
[2018-02-13] MEDS: INSULIN NPH (ISOPHANE), HUMAN 100 UNIT/ML 3 ML SUBCUT SCH (18:17)
[2018-02-13] MEDS ORDERED: MORPHINE SULFATE 10 MG/ML INJ IM ONE (20:51)
[2018-02-13] MEDS ORDERED: ZOLPIDEM TARTRATE 5 MG TABLET PO PRN (20:54)
[2018-02-14] MEDS ORDERED: NORMAL SALINE 500 ML IV ONE (08:46)
--- NOTE | 2018-02-14 09:56 | PDOC PROGRESS REPORT ---
Subjective-OB Progress Note for:: 02/14/18 Subjective: feeling better this am. reports ctx q 8-10 minutes, denies n/v/d/f/c, +FM, no VB Physical Exam (OB) Vital Signs: Temp Pulse Resp BP Pulse Ox 98.2 F 91 20 110/68 100 02/14/18 07:48 02/14/18 07:48 02/14/18 07:48 02/14/18 07:48 02/14/18 07:48 Intake & Output 02/13/18 02/14/18 02/15/18 06:59 06:59 06:59 Intake Total 700 Balance 700 Weight 130.1 kg - Abdomen Description: Soft - gravid Hernia Present: No Bowel Sounds: Normoactive Stool: No Objective-Diagnostic Laboratory: 02/13/18 12:25 02/13/18 02/13/18 12:25 12:25 WBC 8.4 RBC 4.48 Hgb 10.3 L Hct 33.1 L MCV 74 L MCH 23.1 L MCHC 31.3 L RDW 18.0 H Plt Count 104 L Seg Neutrophils % 70.9 Lymphocytes % 17.6 Monocytes % 9.5 Eosinophils % 1.8 Basophils % 0.2 Absolute Neutrophils 5.9 Absolute Lymphocytes 1.5 Absolute Monocytes 0.8 Absolute Eosinophils 0.1 Absolute Basophils 0.0 Blood Type B POSITIVE Antibody Screen NEGATIVE Assessment and Plan(PN) - Assessment and Plan (1) Gestational diabetes mellitus (GDM) Qualifiers: Gestational diabetes mellitus control: insulin-controlled Trimester: third trimester Qualified Code(s): O24.414 - Gestational diabetes mellitus in , insulin controlled Is this a current diagnosis for this admission?: Yes Plan: Pt with uncontrolled GDM. Pt does not understand diet. Evidentally pt had several "low BS" which were actually normal (but likely pt was symptomatic due to her normal is much higher). Pt also with macrosomia (8# baby at 36wks). H/ o Macrosomia with 3rd degree and shoulder dystocia, and scheduled for Primary C/ S at 39wks on 03/03/2018 Internet Marketing Strategist consult. Plan to try to adjust insulin according to diet today. No cervical change noted on exam this am by Mily Mccarthy RN. Diabetic diet ordered. Will try to adjust diet and meds to help prevent lows/symptoms. reviewed and not in labor. Would not recommend c/s at this time. If noted cervical change/labor, will proceed with c/s at that time. - Time Spent with Patient Time with patient: 15-25 minutes Critical Time spent with patient: 15-25 minutes Medications reviewed and adjusted accordingly: Yes - Disposition Anticipated Discharge: Home Within: within 24 hours
[2018-02-14] MEDS ORDERED: FOLIC PO SCH (10:00)
[2018-02-14] MEDS ORDERED: [UNRECOGNIZED DRUG - OTHER] PO SCH (10:00)
[2018-02-14] MEDS ORDERED: IRON PO SCH (10:00)
[2018-02-14] MEDS: INSULIN NPH (ISOPHANE), HUMAN 100 UNIT/ML 3 ML SUBCUT SCH ×2 (10:05→17:19)
[2018-02-14] MEDS: INSULIN REG, HUMAN 100 UNIT/ML 3 ML VIAL (PYX) SUBCUT SCH ×2 (10:06→17:19)
[2018-02-14] MEDS: PRENATAL VITAMIN W DHA CAPSULE PO SCH (10:16)
[2018-02-15] MEDS: INSULIN REG, HUMAN 100 UNIT/ML 3 ML VIAL (PYX) SUBCUT SCH ×2 (09:02→20:23)
[2018-02-15] MEDS: INSULIN NPH (ISOPHANE), HUMAN 100 UNIT/ML 3 ML SUBCUT SCH ×3 (09:03→21:58)
[2018-02-15] MEDS: PRENATAL VITAMIN W DHA CAPSULE PO SCH (10:24)
--- NOTE | 2018-02-15 17:08 | PDOC PROGRESS REPORT ---
Subjective Progress Note for:: 02/15/18 Reason For Visit: GDM A2DM uncontrolled At 36 1/7 wks and advanced dilation. Pt feeling better with less round ligament pain. Indicates concerns for her sugar control as she is having trouble understanding the logistics of control. She did see a diabetic counselor here in the hospital earlier today and is now being more compliant with the diabetic diet Physical Exam - Physical Exam Vital Signs: Temp Pulse Resp BP Pulse Ox 98.3 F 91 16 105/58 L 97 02/15/18 15:18 02/15/18 15:18 02/15/18 15:18 02/15/18 15:18 02/15/18 15:18 Intake & Output 02/14/18 02/15/18 02/16/18 06:59 06:59 06:59 Intake Total 700 2600 720 Balance 700 2600 720 General appearance: PRESENT: no acute distress, cooperative Head exam: PRESENT: atraumatic - Obstetrical Exam Fundal Height: 3/u - 4/u Result Laboratory Results: 02/13/18 12:25 Impressions: Obstetrics Ultrasound 02/13/18 00:00 IMPRESSION: LIMITED OBSTETRICAL ULTRASOUND WITH MEASURED PARAMETERS DELINEATED ABOVE. Trimester of : Third trimester - 28 weeks to delivery. Assessment & Plan - Diagnosis (1) Qualifiers: Weeks of gestation: 36 weeks Qualified Code(s): Z3A.36 - 36 weeks gestation of Is this a current diagnosis for this admission?: Yes (2) Gestational diabetes mellitus (GDM) Qualifiers: Gestational diabetes mellitus control: insulin-controlled Trimester: third trimester Qualified Code(s): O24.414 - Gestational diabetes mellitus in , insulin controlled Is this a current diagnosis for this admission?: Yes - Inpatient Certification Based on my medical assessment, after consideration of the patient's comorbidities, presenting symptoms, or acuity I expect that the services needed warrant INPATIENT care.: Yes I certify that my determination is in accordance with my understanding of Medicare's requirements for reasonable and necessary INPATIENT services [42 CFR 412.3e].: Yes Medical Necessity: Failure to Improve With Outpatient Therapy, Risk of Complication if Not Cared For in Hospital - Plan Summary Plan Summary: patient will continue to be monitored for glucose control tonight and to continue to work on her diet. Is understanding portion control and food choices better. If goes well overnight will consider discharge tomorrow. Patient exihibits concern that if she were to "pass out" again at home she would be alone with her 2 yo son. Explained that as she becomes more accustomed to a normal glucose level she will not have as many diaphoretic episodes or synchopal episodes.
[2018-02-15] MEDS ORDERED: HYDROXYZINE PAMOATE 50 MG CAPSULE PO ONE (19:00)
--- NOTE | 2018-02-16 09:29 | PDOC PROGRESS REPORT ---
Subjective Progress Note for:: 02/16/18 Subjective:: She reports passing out when her fsbs drop to low normal levels. She feels that it is not safe at home for this reason. Reason For Visit: GDM Physical Exam - Physical Exam Vital Signs: Temp Pulse Resp BP Pulse Ox 98.1 F 92 20 104/61 97 02/16/18 07:23 02/16/18 07:23 02/16/18 07:23 02/16/18 07:23 02/16/18 07:23 Intake & Output 02/15/18 02/16/18 02/17/18 06:59 06:59 06:59 Intake Total 2600 1320 Balance 2600 1320 General appearance: PRESENT: no acute distress, well-developed, well-nourished Head exam: PRESENT: atraumatic, normocephalic Result Laboratory Results: 02/13/18 12:25 Impressions: Obstetrics Ultrasound 02/13/18 00:00 IMPRESSION: LIMITED OBSTETRICAL ULTRASOUND WITH MEASURED PARAMETERS DELINEATED ABOVE. Trimester of : Third trimester - 28 weeks to delivery. Currently regulating blood sugars. Will her symptoms it is not safe letting her go home.
[2018-02-16] MEDS: INSULIN REG, HUMAN 100 UNIT/ML 3 ML VIAL (PYX) SUBCUT SCH ×2 (09:49→16:52)
[2018-02-16] MEDS: PRENATAL VITAMIN W DHA CAPSULE PO SCH (09:50)
[2018-02-16] MEDS: INSULIN NPH (ISOPHANE), HUMAN 100 UNIT/ML 3 ML SUBCUT SCH ×2 (09:50→22:26)
[2018-02-16] MEDS: ACETAMINOPHEN 325 MG TABLET PO PRN ×2 (13:49→23:21)
[2018-02-16] MEDS ORDERED: INSULIN NPH (ISOPHANE), HUMAN 100 UNIT/ML 3 ML ONE (22:19)
--- NOTE | 2018-02-16 22:53 | Non Stress Test Report ---
Non Stress Test Datetime Report Generated by CPN: 02/16/2018 22:53 DEMOGRAPHIC Test Number: 5 EGA NST: 36.2 INDICATION Indication for Study: Ordered by Provider MONITORING Monitor Explained: Monitor Explained; Test Explained Time on Monitor: 02/16/2018 21:58 Time off Monitor: 02/16/2018 22:45 NST Duration: 47 NST INTERVENTIONS NST Interventions: PO Hydration; Reposition Patient Physician Notified NST: Dr. Landon BABY A: [id number] BABY A Movement : Present Contraction Frequency : Irregular FHR Baseline : 135 Accelerations : 15X15 Decelerations : None Variability : Moderate 6-25bpm NST Review: Meets Criteria for Reactive NST NST Review and Verified By : RITIKA Saba NST Results: Reactive NST REPORT Report Trigger: Send Report
[2018-02-17] MEDS: INSULIN REG, HUMAN 100 UNIT/ML 3 ML VIAL (PYX) SUBCUT SCH (08:34)
[2018-02-17] MEDS: INSULIN NPH (ISOPHANE), HUMAN 100 UNIT/ML 3 ML SUBCUT SCH (08:36)
[2018-02-17] MEDS: PRENATAL VITAMIN W DHA CAPSULE PO SCH (09:34)
--- NOTE | 2018-02-17 10:10 | PDOC PROGRESS REPORT ---
Subjective Progress Note for:: 02/17/18 Subjective:: doing well, no more dizzy spells, +FM, no VB, rare ctx Reason For Visit: GDM Physical Exam - Physical Exam Vital Signs: Temp Pulse Resp BP Pulse Ox 97.9 F 87 22 H 111/72 100 02/17/18 07:22 02/17/18 07:22 02/17/18 07:22 02/17/18 07:22 02/17/18 07:22 Intake & Output 02/16/18 02/17/18 02/18/18 06:59 06:59 06:59 Intake Total 1320 1850 Balance 1320 1850 General appearance: PRESENT: no acute distress, well-developed, well-nourished Head exam: PRESENT: atraumatic, normocephalic Respiratory exam: PRESENT: clear to auscultation deidra, symmetrical Pulses: PRESENT: normal dorsalis pedis pul, +2 pedal pulses bilateral Vascular exam: PRESENT: normal capillary refill GI/Abdominal exam: PRESENT: normal bowel sounds, soft, other - gravid. ABSENT: distended, guarding, mass, organolmegaly, rebound, tenderness Rectal exam: PRESENT: deferred Extremities exam: PRESENT: full ROM. ABSENT: calf tenderness, clubbing, pedal edema Neurological exam: PRESENT: alert, awake, oriented to person, oriented to place , oriented to time, oriented to situation, CN II-XII grossly intact. ABSENT: motor sensory deficit Psychiatric exam: PRESENT: appropriate affect, normal mood. ABSENT: homicidal ideation, suicidal ideation Result Laboratory Results: 02/13/18 12:25 Impressions: Obstetrics Ultrasound 02/13/18 00:00 IMPRESSION: LIMITED OBSTETRICAL ULTRASOUND WITH MEASURED PARAMETERS DELINEATED ABOVE. Trimester of : Third trimester - 28 weeks to delivery. Status: Imported from PACS Assessment & Plan - Diagnosis (1) Gestational diabetes mellitus (GDM) Qualifiers: Gestational diabetes mellitus control: insulin-controlled Trimester: third trimester Qualified Code(s): O24.414 - Gestational diabetes mellitus in , insulin controlled Is this a current diagnosis for this admission?: Yes Plan: Accuchecks much better controlled. Workforce Advisor helped pt with food choices. No e /o labor. Increase NPH at QHS to 22units and cont current dose of insulin NPH 26am/13 reg in am 18units reg with dinner. Increase NPH at QHS to 22units from 20units. F/u in office Wednesday for NST - Time Time Spent with patient: 15-24 minutes Medications reviewed and adjusted accordingly: Yes Anticipated discharge: Home Within: within 24 hours - Inpatient Certification Based on my medical assessment, after consideration of the patient's comorbidities, presenting symptoms, or acuity I expect that the services needed warrant INPATIENT care.: Yes I certify that my determination is in accordance with my understanding of Medicare's requirements for reasonable and necessary INPATIENT services [42 CFR 412.3e].: Yes - Plan Summary Plan Summary: discharge to home
--- NOTE | 2018-02-17 13:48 | PDOC DISCHARGE SUMMARY ---
General - Admit/Disc Date/PCP Admission Date/Primary Care Provider: 02/14/18 11:09 LISA GARDUNO MD Discharge Date: 02/17/18 - Discharge Diagnosis (1) Gestational diabetes mellitus (GDM) Is this a current diagnosis for this admission?: Yes Summary: pt with poor compliance with GDM. Admitted for control. Meds timing and dosing adjusted and family literacy coordinator consult done and pt doing better. Ok to discharge to home - Additional Information Resuscitation Status: Full Code Discharge Diet: As Tolerated Discharge Activity: Activity As Tolerated Home Medications: Insulin NPH Human Isophane [Humulin N] 26 unit SQ ACBRKFST 12/21/17 Insulin Regular, Human [Novolin R (Reg) Insulin 100 unit/mL] 18 unit SUBCUT ACSUPPER 01/09/18 Vit,Calc78/Iron/Folic [Prenatabs FA Tablet] 1 tab PO DAILY 01/09/18 Insulin NPH Human Isophane [Humulin N] 22 unit SUBCUT QHS 01/25/18 Insulin Regular, Human [Humulin R (Pyxis) Insulin 100 Unit/ml 3Ml] 13 unit SUBCUT ACBRKFST 02/13/18 History of Present Illness Patient complains of: ctx and GDM poor control History of Present Illness: RAMÓN VYAS is a 27 year old female pt with poor compliance with GDM. Admitted for control. Meds timing and dosing adjusted and family literacy coordinator consult done and pt doing better. Ok to discharge to home Hospital Course Hospital Course: pt with poor compliance with GDM. Admitted for control. Meds timing and dosing adjusted and family literacy coordinator consult done and pt doing better. Ok to discharge to home Physical Exam - Physical Exam Vital Signs: Temp Pulse Resp BP Pulse Ox 97.9 F 87 22 H 111/72 100 02/17/18 07:22 02/17/18 07:22 02/17/18 07:22 02/17/18 07:22 02/17/18 07:22 Intake & Output 02/16/18 02/17/18 02/18/18 06:59 06:59 06:59 Intake Total 1320 1850 Balance 1320 1850 General appearance: PRESENT: no acute distress Head exam: PRESENT: atraumatic Respiratory exam: PRESENT: clear to auscultation deidra, symmetrical, unlabored Cardiovascular exam: PRESENT: RRR. ABSENT: diastolic murmur, rubs, systolic murmur Pulses: PRESENT: normal dorsalis pedis pul, +2 pedal pulses bilateral GI/Abdominal exam: PRESENT: normal bowel sounds, soft. ABSENT: distended, guarding, mass, organolmegaly, rebound, tenderness Rectal exam: PRESENT: deferred Neurological exam: PRESENT: alert, awake, oriented to person, oriented to place , oriented to time, oriented to situation, CN II-XII grossly intact. ABSENT: motor sensory deficit Skin exam: PRESENT: dry, intact, warm. ABSENT: cyanosis, rash Result Laboratory Results: 02/13/18 12:25 Impressions: Obstetrics Ultrasound 02/13/18 00:00 IMPRESSION: LIMITED OBSTETRICAL ULTRASOUND WITH MEASURED PARAMETERS DELINEATED ABOVE. Trimester of : Third trimester - 28 weeks to delivery. Status: Imported from PACS Plan Discharge Plan: Discharge to home Time Spent: Greater than 30 Minutes
[2018-02-17 16:30] VITALS: BP 117/57
--- NOTE | 2018-02-17 19:55 | RADIOLOGY REPORT (SQ) ---
EXAM DESCRIPTION: U/S PROFILE W/O STRESS COMPLETED DATE/TIME: 02/17/2018 6:12 pm REASON FOR STUDY: NR NST at 36wks, GDM COMPARISON: None. TECHNIQUE: Limited zhong-scale realtime and static images of the fetus to measure specified parameter s. LIMITATIONS: None. FINDINGS: HEART RATE: 147 beats per minute. PHIL: 19 cm. BREATHING MOVEMENT: 2 points. MOVEMENT: 2 points. POSTURE AND TONE: 2 points. QUALITATIVE PHIL: 2 points. OTHER: No other significant finding. IMPRESSION: BIOPHYSICAL PROFILE: 02/09. Trimester of : Third - 28 weeks to delivery COMMENT: BREATHING MOVEMENTS: 2 POINTS: PRESENT 0 POINTS: ABSENT MOTION: 2 POINTS: PRESENT 0 POINTS: ABSENT TONE: 2 POINTS: PRESENT 0 POINTS: ABSENT AMNIOTIC FLUID VOLUME: 2 POINTS: LARGEST POCKET GREATER THAN 2 CM DEPTH. 0 POINTS: NO POCKET OF 2 CM. TECHNICAL DOCUMENTATION: JOB ID: [id number] [employer]- All Rights Reserved Reading location - IP/workstation name: [email or web address]
== END 2018-02-17 19:00 | disposition home or self-care (01) | DRG 781 ==
LOC: LC 06:30 → LR 12:03 → 2S 21:47 → OBSVTOIN 02-14 11:09 → LR 02-16 21:44 → 2S 02-16 22:57
PROVIDERS: ADMIT Obstetrics & Gynecology Gynecology; ATTEND Obstetrics & Gynecology Gynecology
DX: O24.414 Gestational diabetes mellitus in pregnancy, insulin controlled (principal); O99.213 Obesity complicating pregnancy, third trimester; Z3A.35 35 weeks gestation of pregnancy; Z79.4 Long term (current) use of insulin
CPT/HCPCS: 36415; 59025; 76815; 76819; 80307; 81001; 82962; 84112; 85025; 86592; 86850; 86900; 86901; G0378; G0379; J1815; J2270; J3490; J7040

== ENCOUNTER 2018-02-20 18:53 | Inpatient (IN) | payer MEDICAID ==
[2018-02-20] MEDS ORDERED: CEFAZOLIN 2 GM/D5W RTU 2 GM/50 ML RTUPB IV ONE ×2 (19:34→19:39)
[2018-02-20] MEDS ORDERED: RINGERS SOLUTION,LACTATED 1,000 ML IV ONE (19:34)
[2018-02-20] MEDS ORDERED: CITRIC ACID/SODIUM CITRATE ORAL SOLN 15 ML UDCUP ONE (19:39)
[2018-02-20 20:04] LABS: APPEARANCE,URINE CLEAR; BILIRUBIN,URINE NEGATIVE (NEGATIVE); COLOR,URINE YELLOW; GLUCOSE, URINE NEGATIVE (NEGATIVE); KETONES,URINE NEGATIVE (NEGATIVE); LEUKOCYTE ESTERASE,URINE TRACE (NEGATIVE); NITRITE,URINE NEGATIVE (NEGATIVE); PROTEIN,URINE NEGATIVE (NEGATIVE); URINE SPECIFIC GRAVITY 1.017; UROBILINOGEN,URINE NEGATIVE mg/dL (<2.0)
[2018-02-20 20:06] LABS: ABSOLUTE EOSINOPHILS # (AUTO) 0.2 10^3/uL (0.0-0.6); ABSOLUTE LYMPHOCYTES (AUTO) 1.5 10^3/uL (0.5-4.7); ABSOLUTE MONOCYTES (AUTO) 1.1 10^3/uL (0.1-1.4); ABSOLUTE NEUT (AUTO) 6.6 10^3/uL (1.7-8.2); BASOPHILS % (AUTO) 0.2 % (0-2); EOSINOPHILS % (AUTO) 1.7 % (0-6); HEMATOCRIT 32.2 % (36.0-47.0); HEMOGLOBIN 10.2 g/dL (12.0-15.5); LYMPHOCYTES % (AUTO) 15.9 % (13-45); MEAN CORPUSCULAR HEMOGLOBIN 23.2 pg (27.0-33.4); MEAN CORPUSCULAR HGB CONC 31.8 g/dL (32.0-36.0); MEAN CORPUSCULAR VOLUME 73 fl (80-97); MONOCYTES % (AUTO) 11.3 % (3-13); PLATELET COUNT 123 10^3/uL (150-450); RED BLOOD COUNT 4.42 10^6/uL (3.72-5.28); RED CELL DISTRIBUTION WIDTH 18.5 % (11.5-14.0); SEGMENTED NEUTROPHILS % (AUTO) 70.9 % (42-78); TOTAL CELLS COUNTED % (AUTO) 100 %; WHITE BLOOD COUNT 9.3 10^3/uL (4.0-10.5)
[2018-02-20 20:20] LABS: URINE AMPHETAMINES SCREEN NEGATIVE; URINE BARBITURATES SCREEN NEGATIVE; URINE BENZODIAZEPINES SCREEN NEGATIVE; URINE COCAINE SCREEN NEGATIVE; URINE MARIJUANA (THC) SCREEN NEGATIVE; URINE METHADONE SCREEN NEGATIVE; URINE PHENCYCLIDINE SCREEN NEGATIVE
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
[2018-02-20] MEDS ORDERED: BUPIVACAINE HCL/DEX-WATER/PF 15 MG/2 ML AMPULE ONE (20:42)
[2018-02-20] MEDS ORDERED: ONDANSETRON HCL INJ/PF 4 MG/2 ML SDV ONE (20:42)
[2018-02-20] MEDS ORDERED: OXYTOCIN 10 UNIT/ML VIAL ONE ×2 (20:42→21:37)
[2018-02-20] MEDS ORDERED: MIDAZOLAM 2 MG/2 ML INJ ONE (20:43)
[2018-02-20] MEDS ORDERED: FENTANYL CITRATE INJ/PF 100 MCG/2 ML AMPUL ONE ×2 (20:43→23:41)
[2018-02-20] MEDS ORDERED: EPHEDRINE SULFATE INJ 50 MG/1 ML AMPULE ONE (20:43)
[2018-02-20] MEDS ORDERED: SIMETHICONE 80 MG TAB.CHEW PO PRN (22:07)
[2018-02-20] MEDS ORDERED: OXYTOCIN/NORMAL SALINE 20 UNIT/1,000 ML RTUINJ IV PRN (22:07)
[2018-02-20] MEDS ORDERED: MEASLES,MUMPS&RUBELLA VACC/PF 0.5 ML VIAL SUBCUT PRN (22:07)
[2018-02-20] MEDS ORDERED: PROMETHAZINE HCL INJ 25 MG/1 ML VIAL IV PRN (22:07)
[2018-02-20] MEDS ORDERED: ACETAMINOPHEN 1,000 MG/100 ML RTUPB IV PRN (22:07)
[2018-02-20] MEDS ORDERED: DIPH/PERTUSS(ACELL)/TETANUS VAC/PF 0.5 ML SYR (>=10YO) IM PRN (22:07)
[2018-02-20] MEDS ORDERED: OXYCODONE-ACETAMINOPHEN 5-325 MG TABLET PO PRN (22:07)
[2018-02-20] MEDS ORDERED: ACETAMINOPHEN 325 MG TABLET PO PRN (22:07)
[2018-02-20] MEDS ORDERED: MORPHINE SULFATE 10 MG/ML INJ IV PRN (22:07)
[2018-02-20] MEDS ORDERED: ACETAMINOPHEN 1,000 MG/100 ML RTUPB IV ONE (22:22)
--- NOTE | 2018-02-20 22:52 | Warning Signs in Babies ---
VOD Warning Signs Datetime Report Generated by [facility]: 02/20/2018 22:52 VOD#608 -Warning Signs in Babies: Needs to be viewed. (11/10/2017 14:18:Adriana Sandoval RN)
[2018-02-20] MEDS ORDERED: KETOROLAC TROMETHAMINE INJ/PF 30 MG/1 ML SDV ONE (23:09)
--- NOTE | 2018-02-20 23:45 | Delivery Summary ---
Del Sum A-C Datetime Report Generated by CPN: 02/20/2018 23:45 DELIVERY PERSONNEL DELIVERY PERSONNEL: [id number] Delivery Doctor:: Dalia Bowie MD Anesthesiologist:: Evelina Boles MD INSURANCE VERIFICATION CLERK:: Rios Frias CRNA Public Relations Player:: Adriana Sandoval, RN Data Entry Clerk/TELECOMMUNICATIONS EQUIPMENT INSTALLER: Maty Castañedaadriana, ST Data Entry Clerk/TELECOMMUNICATIONS EQUIPMENT INSTALLER: F SINGH MATERNAL INFORMATION Delivery Anesthesia: Spinal Medications After Delivery: Pitocin Drip 20 Units/1000ml NSS Maternal Complications: None LABOR SUMMARY EDC: 03/14/2018 00:00 No. Babies in Womb: 1 Attempted: No LABOR INFORMATION Group B Beta Strep: NEGATIVE Antibiotics # of Doses: 0 Antibiotics Time of Last Dose: 0 Name of Antibiotic Given: 0 Steroids Given: None Reason Steroids Not Administered: Not Applicable MEMBRANES Membranes Rupture Method: Spontaneous Rupture of Membranes: 02/20/2018 18:30 Length of Rupture (hr): 2.75 Amniotic Fluid Color: Clear Amniotic Fluid Amount: Moderate Amniotic Fluid Odor: Normal STAGES OF LABOR Stage 3 hr: 0 Stage 3 min: 1 VAGINAL DELIVERY Episiotomy: None Laceration #1: None Laceration Extension #1: N/A CSECTION DELIVERY Primary Indication: Other Other Primary Indication: HX SHOULDER DYSTOCIA AND ERBS PALSY Other Secondary Indication: A2GDM CSection Urgency: Non-Scheduled CSection Incidence: Primary Labor: No Labor Elective: Elective CSection Incision: Lower Uterine Transverse BABY A INFORMATION Infant Delivery Date/Time: 02/20/2018 21:15 Method of Delivery: Born in Route : No : N/A Forceps: N/A Vacuum Extraction: N/A Shoulder Dystocia : No PRESENTATION/POSITION BABY A Presentation: Cephalic Cephalic Presentation: Vertex Vertex Position: Left Occipital Anterior PLACENTA INFORMATION BABY A Placenta Delivery Time : 02/20/2018 21:16 Placenta Method of Delivery: Manual Removal Placenta Status: Delivered INFORMATION BABY A Gestational Age at Delivery: 36.6 Gestational Status: Late - 34- 36.6 Weeks Outcome : Liveborn Infant Condition : Stable Sex: Female IDENTIFICATION BABY A Verification Date/Time: 02/20/2018 22:15 ID Band Number: [id number] Mother's Name Verified: Yes RN Verifying Infant: E ZOHRA, RNC Additional Verifying Personnel: MATTHEW, RN WEIGHT/LENGTH BABY A Birthweight (gm): 4440 Infant Weight (lb): 9 Weight (oz): 13 Length (in): 21.00 Infant Length (cm): 53.34 CORD INFORMATION BABY A No. Cord Vessels: 3 Nuchal Cord : N/A Cord Blood Taken: Yes-For Storage (Mom's Blood type +) ASSESSMENT BABY A Skin to Skin: Yes
--- NOTE | 2018-02-21 04:36 | OPERATIVE REPORT E ---
Operative Report NAME: RAMÓN VYAS : 1990 AGE: 27Y DATE OF SURGERY: 02/20/2018 ROOM: 223 PREOPERATIVE DIAGNOSES: 1. IUP AT 36 WEEKS AND 6 DAYS. 2. THE CHILD WITH PREVIOUS SHOULDER DYSTOCIA RESULTING IN ERB'S PALSY. 3. ELECTIVE PRIMARY DUE TO TRAUMATIC HISTORY. 4. RUPTURE OF MEMBRANES. 5. MACROSOMIA. SURGEON: SHAUNA LEE M.D. ANESTHESIA: Dr. *------*, with a spinal. FINDINGS: A female in cephalic presentation with unknown Apgars and unknown weight at this time. ESTIMATED BLOOD LOSS: 800 mL SPECIMENS REMOVED: None. PROCEDURE: A low transverse hysterotomy section. PROCEDURE IN DETAIL: The patient was taken to the operating room, prepared and draped in the normal sterile fashion in a supine position with a leftward tilt. A transverse skin incision was made with a scalpel and carried through to the underlying layer of the fascia with the same scalpel. The fascia was excised in the midline and extended laterally with Diane. The fascia was dissected from the rectus muscle sharply with Diane and the rectus muscle was divided. The peritoneal cavity was entered bluntly with good visualization of the bladder and the uterus. The bladder blade was inserted. The hysterotomy was nicked with a scalpel and extended laterally with surgeon finger fracture. The infant was then delivered atraumatically. The nose and mouth were suctioned with a suction bulb, and the cord was clamped and cut, and the was handed off to awaiting parts facilitator. Cord blood was collected. The placenta was removed manually and the uterus was exteriorized and cleared of clots and debris. The hysterotomy was closed with 0 Monocryl in a running locked fashion. The second layer of the same suture was used to imbricate to ensure hemostasis. The uterus was returned to the abdomen. The peritoneal cavity was cleared of clots and debris. The rectus muscle and peritoneum were reapproximated with a mattress stitch of 2-0 chromic. The fascia was closed with 0 Vicryl. The subcutaneous layer was closed with plain catgut, and the skin was closed with 4-0 Vicryl. The patient tolerate the procedure well. Sponge, lap, and needle counts were correct x2, and the patient was taken to recovery in stable condition. DICTATING PHYSICIAN: SHAUNA LEE M.D. [id number] PHY#: [id number] ID: [id number] JOB#: [id number] ACCT: [id number] cc:SHAUNA LEE M.D. >
[2018-02-21] MEDS ORDERED: AMPICILLIN SOD/SULBACTAM 3 GM VIAL IV PRN (05:26)
[2018-02-21] MEDS ORDERED: AMPICILLIN SODIUM/SULBACTAM NA 3 GM in NORMAL SALINE 100 ML IV ONE (05:30)
[2018-02-21] MEDS ORDERED: AMPICILLIN SOD/SULBACTAM 3 GM VIAL ONE (05:38)
[2018-02-21] MEDS: KETOROLAC TROMETHAMINE INJ/PF 30 MG/1 ML SDV IV SCH ×3 (06:27→22:07)
[2018-02-21 07:06] LABS: HEMATOCRIT 26.9 % (36.0-47.0); HEMOGLOBIN 8.7 g/dL (12.0-15.5); MEAN CORPUSCULAR HEMOGLOBIN 23.3 pg (27.0-33.4); MEAN CORPUSCULAR HGB CONC 32.3 g/dL (32.0-36.0); MEAN CORPUSCULAR VOLUME 72 fl (80-97); PLATELET COUNT 110 10^3/uL (150-450); RED BLOOD COUNT 3.73 10^6/uL (3.72-5.28); RED CELL DISTRIBUTION WIDTH 18.6 % (11.5-14.0); WHITE BLOOD COUNT 11.3 10^3/uL (4.0-10.5)
[2018-02-21] MEDS: IBUPROFEN 800 MG TABLET PO SCH ×4 (07:48→23:09)
[2018-02-21] MEDS ORDERED: NORMAL SALINE 1000 ML 1,000 ML IV PRN (07:59)
[2018-02-21] MEDS ORDERED: DIPH/PERTUSS(ACELL)/TETANUS VAC/PF 0.5 ML SYR (>=10YO) IM PRN (08:30)
[2018-02-21] MEDS ORDERED: MEASLES,MUMPS&RUBELLA VACC/PF 0.5 ML VIAL SUBCUT PRN (08:30)
[2018-02-21] MEDS: PRENATAL VITAMIN W DHA CAPSULE PO SCH (10:05)
[2018-02-21] MEDS: DOCUSATE SODIUM 100 MG CAPSULE PO SCH ×2 (10:05→17:32)
[2018-02-21] MEDS: OXYCODONE-ACETAMINOPHEN 5-325 MG TABLET PO PRN ×3 (10:05→19:09)
--- NOTE | 2018-02-21 14:45 | PDOC PROGRESS REPORT ---
Subjective-OB Progress Note for:: 02/21/18 Subjective: OOB in W/C to see baby in nursery, better than this am, had some afterbirth pains and cramping, voiding, scant lochia Physical Exam (OB) Vital Signs: Temp Pulse Resp BP Pulse Ox 99.5 F 115 H 24 H 96/60 L 96 02/21/18 12:00 02/21/18 12:00 02/21/18 12:00 02/21/18 12:00 02/21/18 12:00 Intake & Output 02/20/18 02/21/18 02/22/18 06:59 06:59 06:59 Intake Total 100 1000 Output Total 550 Balance -450 1000 Weight 130.1 kg - PIH/Pre-Eclampsia Clonus: Negative Headache: Absent Epigastric Pain: No Visual Changes: No - Dressing Removed: No Incision: Dressing - Bilateral Tubal Ligation Dressing Removed: No Site: Well Approximated - Lochia Lochia Amount: Small 10-25 ml Lochia Color: Rubra/Red - Abdomen Description: Tender, Soft, Round Hernia Present: No Fundal Description: Firm, Midline Fundal Height: u/u - u/2 Objective-Diagnostic Laboratory: 02/21/18 06:28 02/20/18 02/20/18 02/20/18 19:45 19:45 19:45 WBC 9.3 RBC 4.42 Hgb 10.2 L Hct 32.2 L MCV 73 L MCH 23.2 L MCHC 31.8 L RDW 18.5 H Plt Count 123 L Seg Neutrophils % 70.9 Lymphocytes % 15.9 Monocytes % 11.3 Eosinophils % 1.7 Basophils % 0.2 Absolute Neutrophils 6.6 Absolute Lymphocytes 1.5 Absolute Monocytes 1.1 Absolute Eosinophils 0.2 Absolute Basophils 0.0 Urine Color YELLOW Urine Appearance CLEAR Urine pH 7.0 Ur Specific [place] 1.017 Urine Protein NEGATIVE Urine Glucose (UA) NEGATIVE Urine Ketones NEGATIVE Urine Blood NEGATIVE Urine Nitrite NEGATIVE Ur Leukocyte Esterase TRACE H Blood Type B POSITIVE Antibody Screen NEGATIVE 02/21/18 06:28 WBC 11.3 H RBC 3.73 Hgb 8.7 L Hct 26.9 L MCV 72 L MCH 23.3 L MCHC 32.3 RDW 18.6 H Plt Count 110 L Seg Neutrophils % Lymphocytes % Monocytes % Eosinophils % Basophils % Absolute Neutrophils Absolute Lymphocytes Absolute Monocytes Absolute Eosinophils Absolute Basophils Urine Color Urine Appearance Urine pH Ur Specific [place] Urine Protein Urine Glucose (UA) Urine Ketones Urine Blood Urine Nitrite Ur Leukocyte Esterase Blood Type Antibody Screen Assessment and Plan(PN) - Assessment and Plan (1) Asthma Qualifiers: Asthma complication type: unspecified Is this a current diagnosis for this admission?: Yes (2) Obesity complicating Qualifiers: Trimester: first trimester Qualified Code(s): O99.211 - Obesity complicating , first trimester Is this a current diagnosis for this admission?: Yes (3) History of shoulder dystocia in prior Is this a current diagnosis for this admission?: Yes (4) Status post primary low transverse section Is this a current diagnosis for this admission?: Yes (5) Gestational diabetes mellitus (GDM) Qualifiers: Gestational diabetes mellitus control: insulin-controlled Trimester: third trimester Qualified Code(s): O24.414 - Gestational diabetes mellitus in , insulin controlled Is this a current diagnosis for this admission?: Yes - Time Spent with Patient Time with patient: Less than 15 minutes Medications reviewed and adjusted accordingly: Yes - Disposition Anticipated Discharge: Home Within: within 48 hours
[2018-02-21 16:30] LABS: HEMATOCRIT 24.9 % (36.0-47.0); MEAN CORPUSCULAR HEMOGLOBIN 22.8 pg (27.0-33.4); MEAN CORPUSCULAR HGB CONC 31.3 g/dL (32.0-36.0); MEAN CORPUSCULAR VOLUME 73 fl (80-97); PLATELET COUNT 114 10^3/uL (150-450); RED BLOOD COUNT 3.43 10^6/uL (3.72-5.28); RED CELL DISTRIBUTION WIDTH 18.2 % (11.5-14.0); WHITE BLOOD COUNT 16.8 10^3/uL (4.0-10.5)
[2018-02-21 16:32] LABS: HEMOGLOBIN 7.8 g/dL (12.0-15.5)
[2018-02-21] MEDS: AMPICILLIN SODIUM/SULBACTAM NA 3 GM in NORMAL SALINE 100 ML IV SCH ×2 (17:32→23:10)
[2018-02-22] MEDS: IBUPROFEN 800 MG TABLET PO SCH ×4 (07:11→23:59)
[2018-02-22] MEDS: AMPICILLIN SODIUM/SULBACTAM NA 3 GM in NORMAL SALINE 100 ML IV SCH ×2 (08:02→12:00)
[2018-02-22] MEDS: PRENATAL VITAMIN W DHA CAPSULE PO SCH (10:26)
[2018-02-22] MEDS: DOCUSATE SODIUM 100 MG CAPSULE PO SCH ×2 (10:26→17:18)
--- NOTE | 2018-02-22 15:20 | PDOC PROGRESS REPORT ---
Subjective-OB Progress Note for:: 02/22/18 Subjective: 27yo G3 now P2 s/p primary c/s ppd2. Ambulating and feeling better this am after blood transfusion. Voiding without difficulty. Walking back and froth from Nursery to see baby. Denies any other concerns at this time. Physical Exam (OB) Vital Signs: Temp Pulse Resp BP Pulse Ox 98.9 F 105 H 17 118/74 97 02/22/18 08:08 02/22/18 08:08 02/22/18 08:08 02/22/18 08:08 02/22/18 08:08 Intake & Output 02/21/18 02/22/18 02/23/18 06:59 06:59 06:59 Intake Total 100 1550 300 Output Total 550 1875 Balance -450 -325 300 Weight 130.1 kg - General General Appearance: Appears well In distress: None - PIH/Pre-Eclampsia Clonus: Negative Headache: Absent Epigastric Pain: No Visual Changes: No - Dressing Removed: No Incision: Dressing Closure Type: OpSite CDI - Bilateral Tubal Ligation Site: Well Approximated - Lochia Lochia Amount: Scant < 10 ml Lochia Color: Rubra/Red - Abdomen Description: Tender, Soft, Round Hernia Present: No Fundal Description: Firm, Midline Fundal Height: u/u - u/2 - Respiratory Respiratory Status: No respiratory distress - Extremities Upper extremity: Normal inspection Lower extremities: Normal inspection - Neurological Cognition: Normal Orientation: AAOx4 - Psychological Associated symptoms: Normal affect, Normal mood Objective-Diagnostic Laboratory: 02/21/18 15:20 02/20/18 02/21/18 19:45 15:20 WBC 16.8 H RBC 3.43 L Hgb 7.8 L Hct 24.9 L MCV 73 L MCH 22.8 L MCHC 31.3 L RDW 18.2 H Plt Count 114 L Blood Type B POSITIVE Antibody Screen NEGATIVE Assessment and Plan(PN) - Assessment and Plan (1) Acute blood loss anemia Is this a current diagnosis for this admission?: Yes Plan: blood transfusion completed this am, increase dietary iron and feso4 bid. Will obtain CBC this afternoon. Continue to monitor (2) Fever Qualifiers: Fever type: unspecified Qualified Code(s): R50.9 - Fever, unspecified Is this a current diagnosis for this admission?: Yes Plan: resolved, stop unasyn at this time. continue to monitor for s/s of infection. (3) Blood transfusion during current hospitalization Is this a current diagnosis for this admission?: Yes Plan: completed this AM, feeling better, will repeat CBC this afternoon, continue to monitor for s/s of allergic reaction/decompensation (4) Asthma Qualifiers: Asthma complication type: unspecified Is this a current diagnosis for this admission?: Yes Plan: routine pp care (5) Obesity complicating Qualifiers: Trimester: first trimester Qualified Code(s): O99.211 - Obesity complicating , first trimester Is this a current diagnosis for this admission?: Yes Plan: SCDs/MICHELE hoses, continue to monitor (6) History of shoulder dystocia in prior Is this a current diagnosis for this admission?: Yes (7) Status post primary low transverse section Is this a current diagnosis for this admission?: Yes Plan: routine pp care (8) Qualifiers: Weeks of gestation: 36 weeks Qualified Code(s): Z3A.36 - 36 weeks gestation of Is this a current diagnosis for this admission?: Yes Plan: delivered (9) Gestational diabetes mellitus (GDM) Qualifiers: Gestational diabetes mellitus control: insulin-controlled Trimester: third trimester Qualified Code(s): O24.414 - Gestational diabetes mellitus in , insulin controlled Is this a current diagnosis for this admission?: Yes Plan: fasting this AM 76. D/c accuchecks per Dr. Martel.Will need to follow up at pp check (10) Thrombocytopenia affecting Is this a current diagnosis for this admission?: Yes Plan: had blood transfusion, will recheck CBC this afternoon - Time Spent with Patient Time with patient: Less than 15 minutes Medications reviewed and adjusted accordingly: Yes - Disposition Anticipated Discharge: Home Within: within 24 hours
[2018-02-22 16:04] LABS: HEMATOCRIT 27.4 % (36.0-47.0); MEAN CORPUSCULAR HEMOGLOBIN 24.1 pg (27.0-33.4); MEAN CORPUSCULAR HGB CONC 32.7 g/dL (32.0-36.0); MEAN CORPUSCULAR VOLUME 74 fl (80-97); PLATELET COUNT 123 10^3/uL (150-450); RED BLOOD COUNT 3.72 10^6/uL (3.72-5.28); RED CELL DISTRIBUTION WIDTH 19.1 % (11.5-14.0); WHITE BLOOD COUNT 18.1 10^3/uL (4.0-10.5)
[2018-02-22] MEDS: OXYCODONE-ACETAMINOPHEN 5-325 MG TABLET PO PRN ×2 (16:31→21:18)
[2018-02-23] MEDS: OXYCODONE-ACETAMINOPHEN 5-325 MG TABLET PO PRN ×2 (05:07→12:06)
[2018-02-23] MEDS ORDERED: IRON PO SCH (05:59)
[2018-02-23] MEDS ORDERED: [UNRECOGNIZED DRUG - OTHER] PO SCH (05:59)
[2018-02-23] MEDS ORDERED: FOLIC PO SCH (05:59)
[2018-02-23] MEDS: IBUPROFEN 800 MG TABLET PO SCH ×2 (06:54→12:05)
[2018-02-23] MEDS: DOCUSATE SODIUM 100 MG CAPSULE PO SCH (09:39)
[2018-02-23] MEDS: PRENATAL VITAMIN W DHA CAPSULE PO SCH (09:40)
--- NOTE | 2018-02-23 11:05 | PDOC PROGRESS REPORT ---
Subjective-OB Progress Note for:: 02/23/18 Subjective: POD #3, pt had a blood transfussion 2 units PRBC yesterday, d/t PPH at delivery. Had been in the hospital prior to her due to poorly controlled blood sugars. Baby remains in the NICU, pt has been pumping breast milk. Ambulating w/out difficulty to the NICU. PLan to d/c pt today, but she may stay as a William if a room is available. Physical Exam (OB) Vital Signs: Temp Pulse Resp BP Pulse Ox 97.8 F 91 18 112/76 97 02/23/18 08:59 02/23/18 08:59 02/23/18 08:59 02/23/18 08:59 02/23/18 08:59 Intake & Output 02/22/18 02/23/18 02/24/18 06:59 06:59 06:59 Intake Total 1550 950 Output Total 1875 Balance -325 950 Weight 130.1 kg - General General Appearance: Appears well, Alert In distress: None - PIH/Pre-Eclampsia Clonus: Negative Headache: Absent Epigastric Pain: No Visual Changes: No - Dressing Removed: No - opsite noted Incision: Well Approximated Closure Type: OpSite CDI - Bilateral Tubal Ligation Dressing Removed: No Site: Well Approximated - Lochia Lochia Amount: Scant < 10 ml Lochia Color: Rubra/Red - Abdomen Description: Soft, Round Hernia Present: No Fundal Description: Firm, Midline Fundal Height: u/u - u/2 - Respiratory Respiratory Status: No respiratory distress - Abdominal Distension: No distension Tenderness: Nontender Organomegaly: No organomegaly - Genitourinary Genitourinary Note: voiding - Extremities Upper extremity: Edema Lower extremities: Edema, Normal weight bearing - Neurological Cognition: Normal Orientation: AAOx4 - Psychological Associated symptoms: Normal affect, Normal mood Objective-Diagnostic Laboratory: 02/22/18 15:26 02/22/18 15:26 WBC 18.1 H RBC 3.72 Hgb 9.0 L Hct 27.4 L MCV 74 L MCH 24.1 L MCHC 32.7 RDW 19.1 H Plt Count 123 L Assessment and Plan(PN) - Assessment and Plan (1) Acute blood loss anemia Is this a current diagnosis for this admission?: Yes (2) Blood transfusion during current hospitalization Is this a current diagnosis for this admission?: Yes (3) History of shoulder dystocia in prior Is this a current diagnosis for this admission?: Yes (4) Obesity complicating Qualifiers: Trimester: first trimester Qualified Code(s): O99.211 - Obesity complicating , first trimester Is this a current diagnosis for this admission?: Yes (5) Status post primary low transverse section Is this a current diagnosis for this admission?: Yes (6) Thrombocytopenia affecting Is this a current diagnosis for this admission?: Yes (7) Gestational diabetes mellitus (GDM) Qualifiers: Gestational diabetes mellitus control: insulin-controlled Trimester: third trimester Qualified Code(s): O24.414 - Gestational diabetes mellitus in , insulin controlled Is this a current diagnosis for this admission?: Yes - Time Spent with Patient Time with patient: Less than 15 minutes Medications reviewed and adjusted accordingly: Yes - Disposition Anticipated Discharge: Home Disposition: stable
--- NOTE | 2018-02-23 11:11 | PDOC DISCHARGE SUMMARY ---
Final Diagnosis Discharge Date: 02/23/18 - Final Diagnosis (1) Blood transfusion during current hospitalization Is this a current diagnosis for this admission?: Yes (2) Acute blood loss anemia Is this a current diagnosis for this admission?: Yes (3) History of shoulder dystocia in prior Is this a current diagnosis for this admission?: Yes (4) Obesity complicating Is this a current diagnosis for this admission?: Yes (5) Status post primary low transverse section Is this a current diagnosis for this admission?: Yes (6) Thrombocytopenia affecting Is this a current diagnosis for this admission?: Yes (7) Gestational diabetes mellitus (GDM) Is this a current diagnosis for this admission?: Yes Discharge Data - Discharge Medication Prescriptions: Ibuprofen [Motrin 800 mg Tablet] 800 mg PO Q6 #48 tablet Oxycodone HCl/Acetaminophen [Percocet 5-325 mg Tablet] 2 tab PO Q4HP PRN #30 tablet PRN Reason: Pain Scale Of 3 Home Medications: Vit,Calc78/Iron/Folic [Prenatabs FA Tablet] 1 tab PO DAILY 01/09/18 Ibuprofen [Motrin 800 mg Tablet] 800 mg PO Q6 #48 tablet 02/23/18 Oxycodone HCl/Acetaminophen [Percocet 5-325 mg Tablet] 2 tab PO Q4HP PRN #30 tablet 02/23/18 Reason(s) for Admission: Induction of Labor, Ceasarean Section-Primary, Medical Complications, Obstetric Complications, Gestional Diabetes Procedures: NST, Ultrasound, Management of Medical Complications Intrapartum Procedure(s): : Low Cervical, Transverse - Diagnosis Test Laboratory: Temp Pulse Resp BP Pulse Ox 97.8 F 91 18 112/76 97 02/23/18 08:59 02/23/18 08:59 02/23/18 08:59 02/23/18 08:59 02/23/18 08:59 02/20/18 02/20/18 02/21/18 19:45 19:45 06:28 RBC 4.42 3.73 Hgb 10.2 L 8.7 L Hct 32.2 L 26.9 L Urine Opiates Screen NEGATIVE 02/21/18 02/22/18 15:20 15:26 RBC 3.43 L 3.72 Hgb 7.8 L 9.0 L Hct 24.9 L 27.4 L Urine Opiates Screen - Discharge information/Instructions Discharge Activity: Activity As Tolerated, Bedrest, No Driving, No Lifting Over 10 Pounds, Pelvic Rest Discharge Diet: As Tolerated, Diabetic Disposition: HOME, SELF-CARE Follow up with: [facility] in: 1, Weeks
[2018-02-23 15:54] VITALS: BP 123/69
--- NOTE | 2018-03-01 10:54 | Delivery Summary ---
Del Sum A-C Datetime Report Generated by CPN: 03/01/2018 10:53 DELIVERY PERSONNEL DELIVERY PERSONNEL: [id number] Delivery Doctor:: Dalia Bowie MD Anesthesiologist:: Evelina Boles MD SENIOR IT SPECIALIST:: Rios Frias CRNA Emergency Veterinary Assistant:: Adriana Sandoval, RN Baker Bench/CP BLEACHER OPERATOR: Maty Castañedaadriana, ST Baker Bench/CP BLEACHER OPERATOR: F SINGH MATERNAL INFORMATION Delivery Anesthesia: Spinal Medications After Delivery: Pitocin Drip 20 Units/1000ml NSS Maternal Complications: None LABOR SUMMARY EDC: 03/14/2018 00:00 No. Babies in Womb: 1 Attempted: No LABOR INFORMATION Group B Beta Strep: NEGATIVE Antibiotics # of Doses: 0 Antibiotics Time of Last Dose: 0 Name of Antibiotic Given: 0 Steroids Given: None Reason Steroids Not Administered: Not Applicable MEMBRANES Membranes Rupture Method: Spontaneous Rupture of Membranes: 02/20/2018 18:30 Length of Rupture (hr): 2.75 Amniotic Fluid Color: Clear Amniotic Fluid Amount: Moderate Amniotic Fluid Odor: Normal STAGES OF LABOR Stage 3 hr: 0 Stage 3 min: 1 VAGINAL DELIVERY Episiotomy: None Laceration #1: None Laceration Extension #1: N/A CSECTION DELIVERY Primary Indication: Other Other Primary Indication: HX SHOULDER DYSTOCIA AND ERBS PALSY Other Secondary Indication: A2GDM CSection Urgency: Non-Scheduled CSection Incidence: Primary Labor: No Labor Elective: Elective CSection Incision: Lower Uterine Transverse BABY A INFORMATION Infant Delivery Date/Time: 02/20/2018 21:15 Method of Delivery: Born in Route : No : N/A Forceps: N/A Vacuum Extraction: N/A Shoulder Dystocia : No PRESENTATION/POSITION BABY A Presentation: Cephalic Cephalic Presentation: Vertex Vertex Position: Left Occipital Anterior PLACENTA INFORMATION BABY A Placenta Delivery Time : 02/20/2018 21:16 Placenta Method of Delivery: Manual Removal Placenta Status: Delivered SCORES BABY A Heart Rate 1 min: >100 bpm Resp Effort 1 min: Absent Reflex Irritability 1 min: No Response Muscle Tone 1 min: Some Flexion of Extremities Color 1 min: Blue/Pale Resuscitation Effort 1 min: Tactile Stimulation; Oxygen; PPV/NCPAP SCORE 1 MIN: 3 Heart Rate 5 min: >100 bpm Resp Effort 5 min: Slow, Irregular Reflex Irritability 5 min: Grimace Muscle Tone 5 min: Some Flexion of Extremities Color 5 min: Blue/Pale Resuscitation Effort 5 min: Tactile Stimulation; Oxygen; PPV/NCPAP SCORE 5 MIN: 5 Heart Rate 10 min: >100 bpm Resp Effort 10 min: Good Cry Reflex Irritability 10 min: Cough or Sneeze or Pulls Away Muscle Tone 10 min: Some Flexion of Extremities Color 10 min: Body [place], Extremities Blue Resuscitation Effort 10 min: Oxygen SCORE 10 MIN: 8 INFORMATION BABY A Gestational Age at Delivery: 36.6 Gestational Status: Late - 34- 36.6 Weeks Outcome : Liveborn Condition : Stable Sex: Female IDENTIFICATION BABY A Verification Date/Time: 02/20/2018 22:15 ID Band Number: [id number] Mother's Name Verified: Yes RN Verifying Infant: Leila SANDOVAL, RNC Additional Verifying Personnel: Miri KERR, RN WEIGHT/LENGTH BABY A Birthweight (gm): 4440 Infant Weight (lb): 9 Weight (oz): 13 Length (in): 21.00 Infant Length (cm): 53.34 CORD INFORMATION BABY A No. Cord Vessels: 3 Nuchal Cord : N/A Cord Blood Taken: Yes-For Storage (Mom's Blood type +) ASSESSMENT BABY A Skin to Skin: Yes
== END 2018-02-23 15:40 | disposition home or self-care (01) | DRG 765 ==
LOC: LC 18:53 → LR 19:35 → 2S 02-21 00:17
PROVIDERS: ADMIT Obstetrics & Gynecology; ATTEND Obstetrics & Gynecology
PROC: 10D00Z1 Extraction of Products of Conception, Low, Open Approach (ICD-10-PCS; principal; 2018-02-20)
PROC: 4A1HXCZ Monitoring of Products of Conception, Cardiac Rate, External Approach (ICD-10-PCS; 2018-02-20)
PROC: 30233N1 Transfusion of Nonautologous Red Blood Cells into Peripheral Vein, Percutaneous Approach (ICD-10-PCS; 2018-02-22)
DX: O36.63X0 Maternal care for excessive fetal growth, third trimester, not applicable or unspecified (principal); O60.14X0 Preterm labor third trimester with preterm delivery third trimester, not applicable or unspecified; D62 Acute posthemorrhagic anemia; Z68.41 Body mass index [BMI] 40.0-44.9, adult; O99.12 Other diseases of the blood and blood-forming organs and certain disorders involving the immune mechanism complicating childbirth; O99.02 Anemia complicating childbirth; O99.214 Obesity complicating childbirth; E66.9 Obesity, unspecified; D69.6 Thrombocytopenia, unspecified; O99.513 Diseases of the respiratory system complicating pregnancy, third trimester; J45.909 Unspecified asthma, uncomplicated; O24.424 Gestational diabetes mellitus in childbirth, insulin controlled; Z3A.36 36 weeks gestation of pregnancy; Z37.0 Single live birth
CPT/HCPCS: 1961; 36415; 36430; 59025; 80307; 81005; 82962; 85025; 85027; 86592; 86850; 86900; 86901; 86920; 94799; J0131; J0295; J0690; J1885; J2250; J2270; J2405; J2550; J2590; J3010; J3490; P9016

== ENCOUNTER 2018-02-25 12:23 | Emergency (ER) | payer MEDICAID ==
[2018-02-25 12:42] VITALS: BP 121/64
--- NOTE | 2018-02-25 12:51 | ER Document Report ---
ED Medical Screen (RME) - General Chief Complaint: Wound Infection Stated Complaint: SURGICAL SITE PAIN Time Seen by Provider: 02/25/18 12:44 TRAVEL OUTSIDE OF THE [place] IN LAST 30 DAYS: No - HPI Patient complains to provider of: Postop infection Onset: Other - This 27-year-old female presents for evaluation of a possible infection following section. - Related Data Allergies/Adverse Reactions: No Known Allergies Allergy (Verified 02/04/18 13:52) Past Medical History - Social History Frequency of alcohol use: None Drug Abuse: None - Past Medical History Cardiac Medical History: Reports: Hx Hypertension Pulmonary Medical History: Reports: Hx Asthma Renal/ Medical History: Denies: Hx Peritoneal Dialysis GI Medical History: Reports: Hx Irritable Bowel Psychiatric Medical History: Reports: Hx Anxiety, Hx Post Traumatic Stress Disorder Past Surgical History: Reports: Hx Section - Immunizations Hx Diphtheria, Pertussis, Tetanus Vaccination: Yes Physical Exam - Vital signs Vitals: Temp Pulse Resp BP Pulse Ox 98.1 F 85 20 121/64 97 02/25/18 12:41 02/25/18 12:41 02/25/18 12:41 02/25/18 12:41 02/25/18 12:41 - Notes Notes: incision site appears to have slight dehiscence, some drainage of purulent material Course - Re-evaluation Re-evalutation: 02/25/18 12:49 This 27-year-old female presented for evaluation by the director of land Dr. Norton, he was made aware of her arrival prior to her arrival. On evaluation this patient does have what appears to be slightly dehisced incision scar, Contacted Dr. Norton, Dr. Norton agrees to evaluate the patient in the emergency department, will come at the finish of meeting. This patient is hemodynamically stable at this time, does not have an immediate threat of life or limb may have a developing infection. Patient to be evaluated by Dr. Norton in the emergency department, will plan for reassessment following his evaluation. Patient CARE to be transitioned to a different provider. - Vital Signs Vital signs: Temp Pulse Resp BP Pulse Ox 98.1 F 85 20 121/64 97 02/25/18 12:41 02/25/18 12:41 02/25/18 12:41 02/25/18 12:41 08/24/18 12:41 Doctor's Discharge - Discharge Referrals: LISA FIGUEROA MD [Primary Care Provider] - Follow up as needed
--- NOTE | 2018-02-25 13:11 | ER Document Report ---
ED General - General Mode of Arrival: Ambulatory Information source: Patient TRAVEL OUTSIDE OF THE [place] IN LAST 30 DAYS: No - General Chief Complaint: Wound Infection Stated Complaint: SURGICAL SITE PAIN Time Seen by Provider: 02/25/18 12:44 Notes: Patient is a 27 year old female, 5 days post presents to the emergency department complaining of a foul odor and drainage from her wound onset today. Patient states she had a on 02/20/2018. Patient states that she also noticed some bilateral lower extremity swelling onset today. Patient is concerned for a possible infection. (SERGO CUMMINS) - Related Data Allergies/Adverse Reactions: No Known Allergies Allergy (Verified 02/04/18 13:52) Past Medical History - General Information source: Patient - Social History Smoking Status: Never Smoker Frequency of alcohol use: None Drug Abuse: None Family History: Arthritis, CAD, COPD, CVA, DM, Hyperlipidemia, Hypertension, Malignancy Patient has suicidal ideation: No Patient has homicidal ideation: No - Past Medical History Cardiac Medical History: Reports: Hx Hypertension Pulmonary Medical History: Reports: Hx Asthma GI Medical History: Reports: Hx Irritable Bowel Psychiatric Medical History: Reports: Hx Anxiety, Hx Post Traumatic Stress Disorder Past Surgical History: Reports: Hx Section - Immunizations Hx Diphtheria, Pertussis, Tetanus Vaccination: Yes Review of Systems - Review of Systems Constitutional: No symptoms reported EENT: No symptoms reported Cardiovascular: No symptoms reported Respiratory: No symptoms reported Gastrointestinal: No symptoms reported Genitourinary: No symptoms reported Female Genitourinary: No symptoms reported Musculoskeletal: See HPI Skin: No symptoms reported Hematologic/Lymphatic: No symptoms reported Neurological/Psychological: No symptoms reported -: Yes All other systems reviewed and negative Physical Exam - Vital signs Vitals: Temp Pulse Resp BP Pulse Ox 98.1 F 85 20 121/64 97 02/25/18 12:41 02/25/18 12:41 02/25/18 12:41 02/25/18 12:41 02/25/18 12:41 - Notes Notes: GENERAL: Alert, interacts well. No acute distress. HEAD: Normocephalic, atraumatic. EYES: Pupils equal, round, and reactive to light. Extraocular movements intact. ENT: Oral mucosa moist, tongue midline. NECK: Full range of motion. Supple. Trachea midline. LUNGS: Clear to auscultation bilaterally, no wheezes, rales, or rhonchi. No respiratory distress. HEART: Regular rate and rhythm. No murmurs, gallops, or rubs. ABDOMEN: Soft, uterus distended, Incisional wound consistent with history of C- section, foul odor coming from the wound. Bowel sounds present in all 4 quadrants. EXTREMITIES: Moves all 4 extremities spontaneously. Edema in BLE. NEUROLOGICAL: Alert and oriented x3. Normal speech. PSYCH: Normal affect, normal mood. SKIN: Warm, dry, normal turgor. No rashes or lesions noted. (SERGO CUMMINS) - Vital Signs Vital signs: Temp Pulse Resp BP Pulse Ox 98.1 F 85 20 121/64 97 02/25/18 12:41 02/25/18 12:41 02/25/18 12:41 02/25/18 12:41 02/25/18 12:41 Discharge - Discharge Clinical Impression: Wound drainage, Peripheral edema Condition: Stable Disposition: HOME, SELF-CARE Additional Instructions: Wash the wound area and change her dressing every day. Elevate your feet to help reduce the swelling. Avoid salt and sodium in your diet. Follow[facility] Wednesday for recheck. RETURN TO THE EMERGENCY ROOM IF ANY NEW OR WORSENING SYMPTOMS. Referrals: [facility] [Provider Group] - 02/28/18 Scribe Attestation: 02/25/18 13:27 I personally performed the services described in the documentation, reviewed and edited the documentation which was dictated to the scribe in my presence, and it accurately records my words and actions. (CHAPO GARNETT) Scribe Documentation - Scribe Written by Tomasa:: Tomasa Crespo, 02/25/2018 13:16 acting as scribe for :: Eyad
== END 2018-02-25 13:40 | disposition home or self-care (01) ==
LOC: ER 12:23
DX: Z48.816 Encounter for surgical aftercare following surgery on the genitourinary system (principal); O14.95 Unspecified pre-eclampsia, complicating the puerperium; O99.53 Diseases of the respiratory system complicating the puerperium; J45.909 Unspecified asthma, uncomplicated
CPT/HCPCS: 87070; 87077; 87186; 87205; 99283

== ENCOUNTER → 2018-06-18 | Outpatient (CLI) | payer MEDICAID ==
[2018-06-18 12:34] LABS: T.VAGINALIS (WET MOUNT) NO TRICHOMONAS SEEN; WBCS (WET MOUNT) 2+ WBCS SEEN; YEAST (WET MOUNT) NO YEAST SEEN
[2018-06-18 12:35] LABS: BACTERIA (WET MOUNT) 3+ BACTERIA SEEN; EPITHELIALS (WET MOUNT) 4+ EPITHELIALS SEEN
[2018-06-18 14:06] LABS: CHLAM PCR NOT DETECTED (NOT DETECT); GON PCR NOT DETECTED (NOT DETECT)
== END ==
LOC: OD 11:26
PROVIDERS: ATTEND Nurse Practitioner Family
DX: N89.8 Other specified noninflammatory disorders of vagina (principal); R30.0 Dysuria; Z11.3 Encounter for screening for infections with a predominantly sexual mode of transmission
CPT/HCPCS: 36415; 80074; 86592; 86701; 87086; 87210; 87491; 87591

== ENCOUNTER 2018-09-09 08:16 | Emergency (ER) | payer MEDICAID, OTHER ==
--- NOTE | 2018-09-09 08:48 | ER Document Report ---
ED Respiratory Problem - General Chief Complaint: Cough Stated Complaint: COUGH Time Seen by Provider: 09/09/18 08:46 Primary Care Provider: ROSALIA FREY NP [NO LOCAL MD] - Follow up as needed Mode of Arrival: Ambulatory Information source: Patient Notes: Patient is a 28-year-old female who presents to the ER today for 2 days of body aches, sore throat and cough with some streaks of blood in her mucus that she is coughing up. Patient denies any fever that she knows of but states that she is tired and "could not get out of bed initially." TRAVEL OUTSIDE OF THE [place] IN LAST 30 DAYS: No - Related Data Allergies/Adverse Reactions: No Known Allergies Allergy (Verified 09/09/18 08:19) Past Medical History - General Information source: Patient - Social History Smoking Status: Never Smoker Family History: Arthritis, CAD, COPD, CVA, DM, Hyperlipidemia, Hypertension, Malignancy - Past Medical History Cardiac Medical History: Reports: Hx Hypertension Pulmonary Medical History: Reports: Hx Asthma Renal/ Medical History: Denies: Hx Peritoneal Dialysis GI Medical History: Reports: Hx Irritable Bowel Psychiatric Medical History: Reports: Hx Anxiety, Hx Post Traumatic Stress Disorder Past Surgical History: Reports: Hx Section - Immunizations Hx Diphtheria, Pertussis, Tetanus Vaccination: Yes Review of Systems - Review of Systems Constitutional: See HPI EENT: See HPI Cardiovascular: No symptoms reported Respiratory: See HPI Gastrointestinal: No symptoms reported Genitourinary: No symptoms reported Female Genitourinary: No symptoms reported Musculoskeletal: No symptoms reported Skin: No symptoms reported Hematologic/Lymphatic: No symptoms reported Neurological/Psychological: No symptoms reported Physical Exam - Vital signs Vitals: Temp Pulse Resp BP Pulse Ox 98.5 F 98 16 128/48 H 100 09/09/18 08:22 09/09/18 08:22 09/09/18 08:22 09/09/18 08:22 09/09/18 08:22 - Notes Notes: PHYSICAL EXAMINATION: GENERAL: Mildly ill-appearing, but he does all in no acute distress. HEAD: Atraumatic, normocephalic. EYES: Pupils equal round and reactive to light, extraocular movements intact, sclera anicteric, conjunctiva are normal. ENT: ear canals without erythema or foreign body, TMs pearly mancuso with good bony landmarks, nares patent, oropharynx erythematous with bilaterally enlarged tonsils, white exudate present NECK: Normal range of motion, supple with tender bilateral cervical lymphadenopathy LUNGS: CTAB and equal. No wheezes rales or rhonchi. HEART: Regular rate and rhythm without murmurs EXTREMITIES: Normal range of motion, no pitting edema. No cyanosis. NEUROLOGICAL: Cranial nerves grossly intact. Normal sensory/motor exams. PSYCH: Normal mood, normal affect. SKIN: Warm, Dry, normal turgor, no rashes or lesions noted Course - Re-evaluation Re-evalutation: 09/09/18 10:16 Strep negative today, patient likely has viral upper respiratory infection, pharyngitis with cough, will treat accordingly - Vital Signs Vital signs: Temp Pulse Resp BP Pulse Ox 98.5 F 98 16 128/48 H 100 09/09/18 08:22 09/09/18 08:22 09/09/18 08:22 09/09/18 08:22 09/09/18 08:22 Discharge - Discharge Clinical Impression: Sore throat (viral), Generalized body aches Condition: Stable Disposition: HOME, SELF-CARE Instructions: Upper Respiratory Illness ([facility]) Additional Instructions: Return immediately for any new or worsening symptoms. Follow up with primary care provider, call tomorrow to make followup appointment. Prescriptions: Nystatin/Dexameth/Diphen [Magic Mouthwash ([facility] Formula) Susp] 5 ml PO QID #120 ml Forms: Return to Work Referrals: ROSALIA FREY NP [NO LOCAL MD] - Follow up as needed
[2018-09-09 10:36] VITALS: BP 129/52
== END 2018-09-09 10:35 | disposition home or self-care (01) ==
LOC: ER 08:16
DX: J02.9 Acute pharyngitis, unspecified (principal); B97.89 Other viral agents as the cause of diseases classified elsewhere; M79.10 Myalgia, unspecified site; R05 Cough; I10 Essential (primary) hypertension; J45.909 Unspecified asthma, uncomplicated
CPT/HCPCS: 87070; 87880; 99283

== ENCOUNTER 2018-10-12 18:28 | Emergency (ER) | payer OTHER ==
[2018-10-12] MEDS ORDERED: TETRACAINE HCL 0.5% OPH SOLN 4 ML OD ONE (18:45)
[2018-10-12] MEDS ORDERED: ERYTHROMYCIN 0.5% OPH OINTMENT 3.5 GM TUBE OD ONE (19:20)
[2018-10-12] MEDS ORDERED: KETOROLAC TROMETHAMINE 0.45% 4 DROP/0.4 ML DROPERETTE OD ONE (19:25)
--- NOTE | 2018-10-12 19:28 | ER Document Report ---
ED Eye Complaint - General Chief Complaint: Redness of Eye Stated Complaint: EYE IRRITATION Time Seen by Provider: 10/12/18 18:45 Primary Care Provider: SAUL MOLINA FNP-C [Primary Care Provider] - Follow up as needed ASMITA HERMOSILLO DO [ACTIVE STAFF] - Follow up tomorrow Mode of Arrival: Ambulatory Information source: Patient Notes: 28-year-old female presents to ED for complaint of pain redness and drainage from her right eye since a bug flew in her eyes 2 days ago. Patient did have a small amount of yellow drainage from the corner of the right eye. Conjunctival was mildly red. She was alert oriented respirations regular and unlabored speaking in full sentences walks with a even steady gait. TRAVEL OUTSIDE OF THE [place] IN LAST 30 DAYS: No - HPI Onset: Other - 2 days ago Eye location: Right Injury: Yes - Flu and URI Quality of pain: Burning, Sharp Severity: Moderate Pain Level: 4 Exposure: Other - Bug flew in her eye 2 days ago has been sore since with increased drainage Associated symptoms: Burning, Pain, Redness, Matting - Related Data Allergies/Adverse Reactions: No Known Allergies Allergy (Verified 10/12/18 18:29) Past Medical History - General Information source: Patient - Social History Smoking Status: Never Smoker Chew tobacco use (# tins/day): No Frequency of alcohol use: None Drug Abuse: None Lives with: Family Family History: Arthritis, CAD, COPD, CVA, DM, Hyperlipidemia, Hypertension, Malignancy Patient has suicidal ideation: No Patient has homicidal ideation: No - Past Medical History Cardiac Medical History: Reports: Hx Hypertension Pulmonary Medical History: Reports: Hx Asthma EENT Medical History: Reports: None Neurological Medical History: Reports: None Endocrine Medical History: Reports: None Renal/ Medical History: Reports: None Malignancy Medical History: Reports: None GI Medical History: Reports: Hx Irritable Bowel Musculoskeletal Medical History: Reports None Skin Medical History: Reports None Psychiatric Medical History: Reports: Hx Anxiety, Hx Post Traumatic Stress Disorder Traumatic Medical History: Reports: None Infectious Medical History: Reports: None Past Surgical History: Reports: Hx Section - Immunizations Hx Diphtheria, Pertussis, Tetanus Vaccination: Yes Review of Systems - Review of Systems Constitutional: No symptoms reported EENT: No symptoms reported, Eye pain, Eye discharge Cardiovascular: No symptoms reported Respiratory: No symptoms reported Gastrointestinal: No symptoms reported Genitourinary: No symptoms reported Female Genitourinary: No symptoms reported Musculoskeletal: No symptoms reported Skin: No symptoms reported Hematologic/Lymphatic: No symptoms reported Neurological/Psychological: No symptoms reported -: Yes All other systems reviewed and negative Physical Exam - Vital signs Vitals: Temp Pulse Resp BP Pulse Ox 98 F 80 18 140/114 H 97 10/12/18 18:36 10/12/18 18:36 10/12/18 18:36 10/12/18 18:36 10/12/18 18:36 Interpretation: Normal. No: Hypertensive - / - General General appearance: Appears well, Alert - HEENT Head: Normocephalic, Atraumatic Eyes: Normal Conjunctiva: Injected, Purulent discharge Cornea: Corneal abrasion, Flourescein stain uptake Extraocular movements intact: Yes Eyelashes: Matted Pupils: PERRL Visual acuity- Right eye: 20/100 Visual acuity- Left eye: 20/50 Visual acuity- Both eyes: 20/30 Corrective lenses worn: No - Patient wears glasses but no recent prescription. Fundascopic: Normal Visual chong normal: Yes Ears: Normal External canal: Normal Tympanic membrane: Normal Sinus: Normal Nasal: Normal Mouth/Lips: Normal Mucous membranes: Normal Pharynx: Normal Neck: Normal - Respiratory Respiratory status: No respiratory distress Chest status: Nontender Breath sounds: Normal Chest palpation: Normal - Cardiovascular Rhythm: Regular Heart sounds: Normal auscultation Murmur: No - Abdominal Inspection: Normal Distension: No distension Bowel sounds: Normal Tenderness: Nontender Organomegaly: No organomegaly - Back Back: Normal, Nontender - Extremities General upper extremity: Normal inspection, Nontender, Normal color, Normal ROM, Normal temperature General lower extremity: Normal inspection, Nontender, Normal color, Normal ROM, Normal temperature, Normal weight bearing. No: Angelika's sign - Neurological Neuro grossly intact: Yes Cognition: Normal Orientation: AAOx4 Nick Coma Scale Eye Opening: Spontaneous [place] Coma Scale Verbal: Oriented Nick Coma Scale Motor: Obeys Commands Nick Coma Scale Total: 15 Speech: Normal Motor strength normal: LUE, RUE, LLE, RLE Sensory: Normal - Psychological Associated symptoms: Normal affect, Normal mood - Skin Skin Temperature: Warm Skin Moisture: Dry Skin Color: Normal Course - Re-evaluation Re-evalutation: 10/12/18 21:20 Patient has a corneal abrasion to the 9:00 on the right eye. She was given ketorolac drop and is erythromycin ointment and instructed to follow-up with ophthalmology tomorrow. The importance of follow-up was stressed multiple times to her and her as she stated she was going away to go to [place] [facility] I explained to her that it was not serrano to wait if they could not get her in tomorrow to please follow-up with a coverage specialist rn that I gave her the name and address of. Patient verbalized understanding and agreement with treatment plan. - Vital Signs Vital signs: Temp Pulse Resp BP Pulse Ox 98.0 F 78 19 114/68 98 10/12/18 19:47 10/12/18 19:47 10/12/18 19:47 10/12/18 19:47 10/12/18 19:47 Discharge - Discharge Clinical Impression: Corneal abrasion Qualifiers: Encounter type: initial encounter Laterality: right Qualified Code(s): S05.01XA - Injury of conjunctiva and corneal abrasion without foreign body, right eye, initial encounter Condition: Stable Disposition: HOME, SELF-CARE Additional Instructions: Corneal Abrasion You have a corneal abrasion, a scratch on the surface of the eye. The pain of a corneal abrasion feels like a sharp particle in the eye. Usually, antibiotics are placed in the eye to prevent infection. Occasionally, medication will be placed in the eye to dilate the pupil. This is done to relieve some of your discomfort and is only temporary. Pain medication may be required. Don't drive or operate machinery until you have the use of both your eyes. The abrasion usually is healed in one or two days. A follow-up examination to confirm healing is recommended. Call the doctor or return at once if you develop severe pain, decreasing vision, eye swelling, or purulent drainage. Erythromycin You have been prescribed an antibiotic of the erythromycin class. These antibiotics are used for many infections, especially in penicillin-allergic patients. They're particularly useful for infections of the respiratory system. The medication will be most effective if taken before or at least two hours after meals. However, many persons will have nausea or stomach cramping with erythromycin. If this occurs, try taking the medicine with food. If the side effects are still intolerable, contact your doctor. You should not take erythromycin with non-sedating antihistamines such as Seldane or Hismanal. Call the doctor at once if you develop rash, itching, shortness of breath, or lightheadedness. Prescriptions: Erythromycin Base [E-Mycin 0.5% Oph Ointment 3.5 gm] 1 applic OD QID #2 tube Forms: Return to Work Referrals: SAUL MOLINA FNP-C [Primary Care Provider] - Follow up as needed ASMITA HERMOSILLO DO [ACTIVE STAFF] - Follow up tomorrow
[2018-10-12 19:48] VITALS: BP 114/68
== END 2018-10-12 19:48 | disposition home or self-care (01) ==
LOC: ER 18:28
DX: S05.01XA Injury of conjunctiva and corneal abrasion without foreign body, right eye, initial encounter (principal); X58.XXXA Exposure to other specified factors, initial encounter; I10 Essential (primary) hypertension; J45.909 Unspecified asthma, uncomplicated
CPT/HCPCS: 99282; J3490 ×2

== ENCOUNTER 2018-12-01 21:44 | Emergency (ER) | payer MEDICAID ==
--- NOTE | 2018-12-01 23:32 | ER Document Report ---
ED Medical Screen (RME) - General Chief Complaint: Vaginal Bleeding Stated Complaint: VAGINAL BLEEDING Time Seen by Provider: 12/01/18 23:30 Primary Care Provider: SAUL MOLINA FNP-C [Primary Care Provider] - Follow up as needed Notes: Patient is a 28-year-old female G3, P2 presents to the emergency department for vaginal bleeding for last 24 days. Patient states that is intermittently heavy and then light. Patient states she was at the [place] today for this concern. Was told at the [place] they were unable to do an ultrasound or blood work which is why she presents to the emergency room. Patient states she does have some generalized right and left lower pelvic pain. Patient states she is unsure of when her last menstrual cycle was due to her Nexplanon control. Patient's denying any lightheadedness, weakness, dizziness. Patient is only complaining of generalized pelvic pain. Patient is refusing pain medication in triage. Physical exam: Generalized pelvic pain noted bilaterally, some suprapubic pain noted, no CVA tenderness noted bilaterally. I have greeted and performed a rapid initial assessment of this patient. A comprehensive ED assessment and evaluation of the patient, analysis of test results and completion of the medical decision making process will be conducted by additional ED providers. TRAVEL OUTSIDE OF THE [place] IN LAST 30 DAYS: No - Related Data Allergies/Adverse Reactions: No Known Allergies Allergy (Verified 10/12/18 18:29) Past Medical History - Past Medical History Cardiac Medical History: Reports: Hx Hypertension Pulmonary Medical History: Reports: Hx Asthma Renal/ Medical History: Denies: Hx Peritoneal Dialysis GI Medical History: Reports: Hx Irritable Bowel Psychiatric Medical History: Reports: Hx Anxiety, Hx Post Traumatic Stress Disorder Past Surgical History: Reports: Hx Section - Immunizations Hx Diphtheria, Pertussis, Tetanus Vaccination: Yes Physical Exam - Vital signs Vitals: Temp Pulse Resp BP Pulse Ox 98.2 F 72 20 126/91 H 99 12/01/18 22:37 12/01/18 22:37 12/01/18 22:37 12/01/18 22:37 12/01/18 22:37 Course - Vital Signs Vital signs: Temp Pulse Resp BP Pulse Ox 98.2 F 72 20 126/91 H 99 12/01/18 22:37 12/01/18 22:37 12/01/18 22:37 12/01/18 22:37 12/01/18 22:37 Doctor's Discharge - Discharge Referrals: SAUL MOLINA FNP-C [Primary Care Provider] - Follow up as needed
[2018-12-01 23:57] LABS: APPEARANCE,URINE SLIGHTLY-CLOUDY; BILIRUBIN,URINE NEGATIVE (NEGATIVE); COLOR,URINE YELLOW; GLUCOSE, URINE NEGATIVE (NEGATIVE); KETONES,URINE NEGATIVE (NEGATIVE); LEUKOCYTE ESTERASE,URINE SMALL (NEGATIVE); NITRITE,URINE NEGATIVE (NEGATIVE); PROTEIN,URINE NEGATIVE (NEGATIVE); URINE SPECIFIC GRAVITY 1.025; UROBILINOGEN,URINE NEGATIVE mg/dL (<2.0)
[2018-12-02 00:09] LABS: ABSOLUTE EOSINOPHILS # (AUTO) 0.2 10^3/uL (0.0-0.6); ABSOLUTE LYMPHOCYTES (AUTO) 2.7 10^3/uL (0.5-4.7); ABSOLUTE MONOCYTES (AUTO) 0.6 10^3/uL (0.1-1.4); ABSOLUTE NEUT (AUTO) 3.4 10^3/uL (1.7-8.2); BASOPHILS % (AUTO) 0.6 % (0-2); EOSINOPHILS % (AUTO) 3.5 % (0-6); HEMATOCRIT 42.8 % (36.0-47.0); LYMPHOCYTES % (AUTO) 38.2 % (13-45); MEAN CORPUSCULAR HEMOGLOBIN 25.7 pg (27.0-33.4); MEAN CORPUSCULAR HGB CONC 32.6 g/dL (32.0-36.0); MEAN CORPUSCULAR VOLUME 79 fl (80-97); MONOCYTES % (AUTO) 8.7 % (3-13); PLATELET COUNT 197 10^3/uL (150-450); RED BLOOD COUNT 5.43 10^6/uL (3.72-5.28); RED CELL DISTRIBUTION WIDTH 14.7 % (11.5-14.0); TOTAL CELLS COUNTED % (AUTO) 100 %; WHITE BLOOD COUNT 6.9 10^3/uL (4.0-10.5)
[2018-12-02 00:18] LABS: ANION GAP 12 (5-19); BLOOD UREA NITROGEN 15 mg/dL (7-20); CALCIUM 10.1 mg/dL (8.4-10.2); CARBON DIOXIDE 26 mmol/L (22-30); CHLORIDE 104 mmol/L (98-107); GLUCOSE 89 mg/dL (75-110); POTASSIUM 4.6 mmol/L (3.6-5.0); SODIUM 141.9 mmol/L (137-145)
--- NOTE | 2018-12-02 00:28 | RADIOLOGY REPORT (SQ) ---
EXAM DESCRIPTION: US TRANSVAGINAL COMPLETED DATE/TME: 12/01/2018 23:31 CLINICAL HISTORY: 28 years, Female, pelvic pain/bleeding COMPARISON: None. TECHNIQUE: Transverse and longitudinal transvaginal sonographic images of the pelvis LIMITATIONS: None. FINDINGS: The uterus measures 9.5 x 5.9 x 5.2 cm. The myometrium is homogenous. The endometrium measures 9.6 mm in thickness. Right ovary measures 4.7 x 2.0 x 3.1 cm, left ovary 3.2 x 2.3 x 2.2 cm. Arterial and venous flow to both ovaries. Bilateral ovarian follicles. No solid adnexal mass. No free fluid IMPRESSION: Unremarkable pelvic ultrasound copyright 2010 [employer]- All Rights Reserved
[2018-12-02] MEDS ORDERED: HYDROCODONE/ACETAMINOPHEN 5-325 MG (6 TAB/ER DISP) PO PRN (02:45)
--- NOTE | 2018-12-02 02:45 | ER Document Report ---
ED GI/ - General Chief Complaint: Vaginal Bleeding Stated Complaint: VAGINAL BLEEDING Time Seen by Provider: 12/01/18 23:30 Primary Care Provider: SAUL MOLINA FNP-C [NO LOCAL MD] - Follow up as needed Notes: Patient with control implant. Has not had a. In 9-month. Has been complaining of cramping abdominal pain and vaginal bleeding now for 1 month. Has not had follow-up with [facility] since her follow-up appointment from the delivery of her child who is now 9 months old. TRAVEL OUTSIDE OF THE [place] IN LAST 30 DAYS: No - HPI Patient complains to provider of: Pelvic pain, Vaginal bleeding Timing/Duration: Gradual, Constant Quality of pain: Achy Severity at maximum: Moderate Severity in ED: Moderate Pain Level: 2 - Related Data Allergies/Adverse Reactions: No Known Allergies Allergy (Verified 10/12/18 18:29) Past Medical History - General Information source: Patient - Social History Smoking Status: Unknown if Ever Smoked Frequency of alcohol use: None Drug Abuse: None Lives with: Spouse/Significant other Family History: Arthritis, CAD, COPD, CVA, DM, Hyperlipidemia, Hypertension, Malignancy Patient has suicidal ideation: No Patient has homicidal ideation: No - Past Medical History Cardiac Medical History: Reports: Hx Hypertension Pulmonary Medical History: Reports: Hx Asthma Renal/ Medical History: Denies: Hx Peritoneal Dialysis GI Medical History: Reports: Hx Irritable Bowel Psychiatric Medical History: Reports: Hx Anxiety, Hx Post Traumatic Stress Dis order Past Surgical History: Reports: Hx Section - Immunizations Hx Diphtheria, Pertussis, Tetanus Vaccination: Yes Review of Systems - Review of Systems Notes: Constitutional: denies: Chills, Diaphoresis, Fever, Malaise, Weakness EENT: denies: Eye discharge, Blurred vision, Tearing, Double vision, Nose congestion, Nose discharge, Throat swelling, Mouth pain Cardiovascular: denies: Palpitations, Heart racing, Orthopnea, Dyspnea, Chest pain Respiratory: denies: Cough, Hurts to breathe, Wheezing, Shortness of breath Gastrointestinal: denies: Abdominal pain, Diarrhea, Nausea, Vomiting, Black stools, bright red blood in stool Genitourinary: Complaining of vaginal bleeding, pelvic pain. Musculoskeletal: denies: Joint pain, Joint swelling, Muscle pain, Muscle stiffness, back pain Hematologic/Lymphatic: denies: Anemia, Easy bleeding, Easy bruising, Blood clots Neurological/Psychological: denies: Confusion, Dementia, Depression, Loss of consciousness Skin: No lesions, no masses, no skin breakdown, no abscesses Physical Exam - Vital signs Vitals: Temp Pulse Resp BP Pulse Ox 98.2 F 72 20 126/91 H 99 12/01/18 22:37 12/01/18 22:37 12/01/18 22:37 12/01/18 22:37 12/01/18 22:37 Interpretation: Normal - General General appearance: Appears well, Alert - HEENT Head: Normocephalic, Atraumatic Eyes: Normal Pupils: PERRL - Respiratory Respiratory status: No respiratory distress Chest status: Nontender Breath sounds: Normal Chest palpation: Normal - Cardiovascular Rhythm: Regular Heart sounds: Normal auscultation Murmur: No - Abdominal Inspection: Normal Distension: No distension Bowel sounds: Normal Tenderness: Nontender Organomegaly: No organomegaly - Genitourinary External exam: Normal Speculum exam: Normal Vaginal bleeding: Mild Bimanuel exam: Normal - Back Back: Normal, Nontender - Extremities General upper extremity: Normal inspection, Nontender, Normal color, Normal ROM, Normal temperature General lower extremity: Normal inspection, Nontender, Normal color, Normal ROM, Normal temperature, Normal weight bearing. No: Angelika's sign - Neurological Neuro grossly intact: Yes Cognition: Normal Orientation: AAOx4 [place] Coma Scale Eye Opening: Spontaneous [place] Coma Scale Verbal: Oriented Nick Coma Scale Motor: Obeys Commands Nick Coma Scale Total: 15 Speech: Normal Motor strength normal: LUE, RUE, LLE, RLE Sensory: Normal - Psychological Associated symptoms: Normal affect, Normal mood - Skin Skin Temperature: Warm Skin Moisture: Dry Skin Color: Normal Course - Re-evaluation Re-evalutation: 12/02/18 02:43 Laboratory 12/01/18 12/01/18 12/01/18 23:01 23:49 23:49 WBC 6.9 RBC 5.43 H Hgb 14.0 Hct 42.8 MCV 79 L MCH 25.7 L MCHC 32.6 RDW 14.7 H Plt Count 197 Seg Neutrophils % 49.0 Lymphocytes % 38.2 Monocytes % 8.7 Eosinophils % 3.5 Basophils % 0.6 Absolute Neutrophils 3.4 Absolute Lymphocytes 2.7 Absolute Monocytes 0.6 Absolute Eosinophils 0.2 Absolute Basophils 0.0 Sodium Potassium Chloride Carbon Dioxide Anion Gap BUN Creatinine Est GFR ( Amer) Est GFR (Non-Af Amer) Glucose Calcium Serum HCG, Qual NEGATIVE Urine Color YELLOW Urine Appearance SLIGHTLY-CLOUDY Urine pH 5.0 Ur Specific [place] 1.025 Urine Protein NEGATIVE Urine Glucose (UA) NEGATIVE Urine Ketones NEGATIVE Urine Blood LARGE H Urine Nitrite NEGATIVE Urine Bilirubin NEGATIVE Urine Urobilinogen NEGATIVE Ur Leukocyte Esterase SMALL H Urine WBC (Auto) 11 Urine RBC (Auto) 3 Squamous Epi Cells Auto 8 Urine Mucus (Auto) RARE Urine Ascorbic Acid NEGATIVE 12/01/18 23:49 WBC RBC Hgb Hct MCV MCH MCHC RDW Plt Count Seg Neutrophils % Lymphocytes % Monocytes % Eosinophils % Basophils % Absolute Neutrophils Absolute Lymphocytes Absolute Monocytes Absolute Eosinophils Absolute Basophils Sodium 141.9 Potassium 4.6 Chloride 104 Carbon Dioxide 26 Anion Gap 12 BUN 15 Creatinine 0.94 Est GFR ( Amer) > 60 Est GFR (Non-Af Amer) > 60 Glucose 89 Calcium 10.1 Serum HCG, Qual Urine Color Urine Appearance Urine pH Ur Specific [place] Urine Protein Urine Glucose (UA) Urine Ketones Urine Blood Urine Nitrite Urine Bilirubin Urine Urobilinogen Ur Leukocyte Esterase Urine WBC (Auto) Urine RBC (Auto) Squamous Epi Cells Auto Urine Mucus (Auto) Urine Ascorbic Acid Transvaginal US 12/01/18 23:31 IMPRESSION: Unremarkable pelvic ultrasound copyright 2011 [employer]- All Rights Reserved 12/02/18 02:43 Pelvic exam unremarkable. Normal ultrasound. Normal labs. At this time will DC. Urge close follow-up with [facility]. - Vital Signs Vital signs: Temp Pulse Resp BP Pulse Ox 98.2 F 72 20 126/91 H 99 12/01/18 22:37 12/01/18 22:37 12/01/18 22:37 12/01/18 22:37 12/01/18 22:37 - Laboratory Result Diagrams: 12/01/18 23:49 12/01/18 23:49 Laboratory results interpreted by me: 12/01/18 12/01/18 23:01 23:49 RBC 5.43 H MCV 79 L MCH 25.7 L RDW 14.7 H Urine Blood LARGE H Ur Leukocyte Esterase SMALL H Discharge - Discharge Clinical Impression: Dysfunctional uterine bleeding Condition: Good Disposition: HOME, SELF-CARE Instructions: Dysfunctional Uterine Bleeding ([facility]) Additional Instructions: Follow-up with [facility] for repeat evaluation. In the event that symptoms are getting worse, soaking more than 2 pads per hour for 2 hours straight for other concerns we are here for you. Forms: Return to Work Referrals: SAUL MOLINA FNP-C [NO LOCAL MD] - Follow up as needed CLAUDIA LIRA MD [ACTIVE STAFF] - Follow up in 1 week
[2018-12-02 03:01] VITALS: BP 124/81
[2018-12-02 03:25] LABS: RBCS (WET MOUNT) 1+ RBCS SEEN; T.VAGINALIS (WET MOUNT) NO TRICHOMONAS SEEN; WBCS (WET MOUNT) 1+ WBCS SEEN; YEAST (WET MOUNT) NO YEAST SEEN
[2018-12-02 04:48] LABS: CHLAM PCR NOT DETECTED (NOT DETECT); GON PCR NOT DETECTED (NOT DETECT)
== END 2018-12-02 03:02 | disposition home or self-care (01) ==
LOC: ER 21:44
DX: N93.8 Other specified abnormal uterine and vaginal bleeding (principal); R10.2 Pelvic and perineal pain; I10 Essential (primary) hypertension
CPT/HCPCS: 36415; 76830; 80048; 81001; 84703; 85025; 87210; 87491; 87591; 93976; 99284

== ENCOUNTER 2019-03-20 12:22 | Emergency (ER) | payer MEDICAID, OTHER ==
[2019-03-20] MEDS ORDERED: KETOROLAC TROMETHAMINE INJ/PF 30 MG/1 ML SDV IV ONE (12:59)
[2019-03-20] MEDS ORDERED: DIPHENHYDRAMINE HCL 50 MG/ML VIAL IV ONE (12:59)
[2019-03-20] MEDS ORDERED: NORMAL SALINE 1000 ML 1,000 ML IV ONE (12:59)
[2019-03-20] MEDS ORDERED: METOCLOPRAMIDE HCL INJ/PF 10 MG/2 ML SDV IV ONE (12:59)
--- NOTE | 2019-03-20 13:18 | ER Document Report ---
ED Medical Screen (RME) - General Chief Complaint: Headache Stated Complaint: HEADACHES Time Seen by Provider: 03/20/19 12:53 Primary Care Provider: MEHRDAD LINARES PA [Primary Care Provider] - Follow up as needed Mode of Arrival: Ambulatory Information source: Patient Notes: Patient is a 28-year-old female presenting to the emergency department with headache and recurrent "blacking out". Patient reports she is blacking at least 4 times per week over the last 2 weeks. She does report a history of migraine headaches. Exam: Patient alert, oriented, answering all questions appropriately. I have greeted and performed a rapid initial assessment of this patient. A comprehensive ED assessment and evaluation of the patient, analysis of test results and completion of the medical decision making process will be conducted by additional ED providers. I have specifically instructed the patient or family members with the patient to immediately return to any nursing staff should anything change in the patient's condition or with their chief complaint. This medical record was dictated with voice recognizing software. There may be grammatical, syntax errors that are unintended. TRAVEL OUTSIDE OF THE [place] IN LAST 30 DAYS: No - Related Data Allergies/Adverse Reactions: No Known Allergies Allergy (Verified 10/12/18 18:29) Past Medical History - Social History Chew tobacco use (# tins/day): No Frequency of alcohol use: None Drug Abuse: None - Past Medical History Cardiac Medical History: Reports: Hx Hypertension Pulmonary Medical History: Reports: Hx Asthma Renal/ Medical History: Denies: Hx Peritoneal Dialysis GI Medical History: Reports: Hx Irritable Bowel Psychiatric Medical History: Reports: Hx Anxiety, Hx Post Traumatic Stress Disorder Past Surgical History: Reports: Hx Section - Immunizations Hx Diphtheria, Pertussis, Tetanus Vaccination: Yes Physical Exam - Vital signs Vitals: Temp Pulse Resp BP Pulse Ox 98.8 F 77 18 129/71 H 96 03/20/19 12:37 03/20/19 12:37 03/20/19 12:37 03/20/19 12:37 03/20/19 12:37 Course - Vital Signs Vital signs: Temp Pulse Resp BP Pulse Ox 98.8 F 77 18 129/71 H 96 03/20/19 12:37 03/20/19 12:37 03/20/19 12:37 03/20/19 12:37 03/20/19 12:37 Doctor's Discharge - Discharge Referrals: MEHRDAD LINARES PA [Primary Care Provider] - Follow up as needed
[2019-03-20 13:43] LABS: ABSOLUTE EOSINOPHILS # (AUTO) 0.2 10^3/uL (0.0-0.6); ABSOLUTE LYMPHOCYTES (AUTO) 1.8 10^3/uL (0.5-4.7); ABSOLUTE MONOCYTES (AUTO) 0.6 10^3/uL (0.1-1.4); BASOPHILS % (AUTO) 0.4 % (0-2); EOSINOPHILS % (AUTO) 3.2 % (0-6); HEMATOCRIT 39.8 % (36.0-47.0); LYMPHOCYTES % (AUTO) 27.7 % (13-45); MEAN CORPUSCULAR HEMOGLOBIN 25.3 pg (27.0-33.4); MEAN CORPUSCULAR HGB CONC 32.7 g/dL (32.0-36.0); MEAN CORPUSCULAR VOLUME 77 fl (80-97); MONOCYTES % (AUTO) 8.9 % (3-13); PLATELET COUNT 189 10^3/uL (150-450); RED BLOOD COUNT 5.15 10^6/uL (3.72-5.28); RED CELL DISTRIBUTION WIDTH 14.8 % (11.5-14.0); SEGMENTED NEUTROPHILS % (AUTO) 59.8 % (42-78); TOTAL CELLS COUNTED % (AUTO) 100 %; WHITE BLOOD COUNT 6.7 10^3/uL (4.0-10.5)
[2019-03-20 13:58] LABS: APPEARANCE,URINE CLOUDY; BILIRUBIN,URINE NEGATIVE (NEGATIVE); COLOR,URINE STRAW; GLUCOSE, URINE NEGATIVE (NEGATIVE); KETONES,URINE NEGATIVE (NEGATIVE)
[2019-03-20 13:59] LABS: LEUKOCYTE ESTERASE,URINE LARGE (NEGATIVE); NITRITE,URINE NEGATIVE (NEGATIVE); PROTEIN,URINE NEGATIVE (NEGATIVE); URINE SPECIFIC GRAVITY 1.023
[2019-03-20 14:04] LABS: ALBUMIN 4.5 g/dL (3.5-5.0); ALKALINE PHOSPHATASE 63 U/L (38-126); ANION GAP 11 (5-19); ASPARTATE AMINO TRANSFERASE 20 U/L (14-36); BILIRUBIN,DIRECT 0.1 mg/dL (0.0-0.4); BILIRUBIN,TOTAL 0.4 mg/dL (0.2-1.3); BLOOD UREA NITROGEN 12 mg/dL (7-20); CALCIUM 9.7 mg/dL (8.4-10.2); CARBON DIOXIDE 27 mmol/L (22-30); CHLORIDE 102 mmol/L (98-107); GLUCOSE 94 mg/dL (75-110); POTASSIUM 4.3 mmol/L (3.6-5.0); TOTAL PROTEIN 7.2 g/dL (6.3-8.2)
--- NOTE | 2019-03-20 14:06 | RADIOLOGY REPORT (SQ) ---
EXAM DESCRIPTION: CT HEAD WITHOUT COMPLETED DATE/TIME: 03/20/2019 1:56 pm REASON FOR STUDY: headache, syncope COMPARISON: None. TECHNIQUE: Axial images acquired through the brain without intravenous contrast. Images reviewed wi th bone, brain and subdural windows. Additional sagittal and coronal reconstructions were generated. Images stored on PACS. All CT scanners at this facility use dose modulation, iterative reconstruction, and/or weight based d osing when appropriate to reduce radiation dose to as low as reasonably achievable (ALARA). [facility]: Dose Right [facility]: CareDose [facility]: Dose Right [facility]: Teradose 4D [facility]: Smart [employer] RADIATION DOSE: CT Rad equipment meets quality standard of care and radiation dose reduction techniq ues were employed. CTDIvol: 53.2 mGy. DLP: 1097 mGy-cm. mGy. LIMITATIONS: None. FINDINGS: VENTRICLES: Normal size and contour. CEREBRUM: No masses. No hemorrhage. No midline shift. No evidence for acute infarction. Normal gra y/white matter differentiation. No areas of low density in the white matter. CEREBELLUM: No masses. No hemorrhage. No alteration of density. No evidence for acute infarction. EXTRAAXIAL SPACES: No fluid collections. No masses. ORBITS AND GLOBE: No intra- or extraconal masses. Normal contour of globe without masses. CALVARIUM: No fracture. PARANASAL SINUSES: No fluid or mucosal thickening. SOFT TISSUES: No mass or hematoma. OTHER: No other significant finding. IMPRESSION: NORMAL BRAIN CT WITHOUT CONTRAST. EVIDENCE OF ACUTE STROKE: NO. COMMENT: Quality ID # [id number]: Final reports with documentation of one or more dose reduction techniques (e.g., Automated exposure control, adjustment of the mA and/or kV according to patient size, use of iterative reconstruction technique) TECHNICAL DOCUMENTATION: JOB ID: [id number] [employer]- All Rights Reserved Reading location - IP/workstation name: [email or web address]
--- NOTE | 2019-03-20 15:12 | ER Document Report ---
ED Headache - General Chief Complaint: Headache Stated Complaint: HEADACHES Time Seen by Provider: 03/20/19 12:53 Primary Care Provider: MEHRDAD LINARES PA [Primary Care Provider] - Follow up as needed Mode of Arrival: Ambulatory Information source: Patient Notes: 28-year-old female presented to ED for complaint of headache with recurrent "blacking out. She states she has been doing this for multiple weeks. She states she does have a history of migraines. She is alert oriented and answering all questions appropriate no neurological changes. Respirations re gular and unlabored speaking in full sentences walks with a even steady gait. TRAVEL OUTSIDE OF THE [place] IN LAST 30 DAYS: No - HPI Patient complains to provider of: Headache, "Migraine" Patient reports: Frequent migraines, Hx chronic headaches Onset: Other - Chronic Onset was: Gradual Timing: Better Quality of pain: Achy Severity: Mild Pain Level: 1 Associated symptoms: Other - Blacking out, headache, nausea Exacerbated by: Noise, Movement Similar symptoms previously: Yes Recently seen / treated by doctor: No - Related Data Allergies/Adverse Reactions: No Known Allergies Allergy (Verified 10/12/18 18:29) Past Medical History - General Information source: Patient - Social History Smoking Status: Never Smoker Chew tobacco use (# tins/day): No Frequency of alcohol use: None Drug Abuse: None Lives with: Family Family History: Arthritis, CAD, COPD, CVA, DM, Hyperlipidemia, Hypertension, Malignancy Patient has suicidal ideation: No Patient has homicidal ideation: No - Past Medical History Cardiac Medical History: Reports: Hx Hypertension Pulmonary Medical History: Reports: Hx Asthma EENT Medical History: Reports: None Neurological Medical History: Reports: Hx Migraine Endocrine Medical History: Reports: None Renal/ Medical History: Reports: None Malignancy Medical History: Reports: None GI Medical History: Reports: Hx Irritable Bowel Musculoskeletal Medical History: Reports None Skin Medical History: Reports None Psychiatric Medical History: Reports: Hx Anxiety, Hx Post Traumatic Stress Disorder Traumatic Medical History: Reports: None Infectious Medical History: Reports: None Past Surgical History: Reports: Hx Section - Immunizations Hx Diphtheria, Pertussis, Tetanus Vaccination: Yes Review of Systems - Review of Systems Constitutional: No symptoms reported EENT: No symptoms reported Cardiovascular: No symptoms reported Respiratory: No symptoms reported Gastrointestinal: No symptoms reported Genitourinary: No symptoms reported Female Genitourinary: No symptoms reported Musculoskeletal: No symptoms reported Skin: No symptoms reported Hematologic/Lymphatic: No symptoms reported Neurological/Psychological: No symptoms reported -: Yes All other systems reviewed and negative Physical Exam - Vital signs Vitals: Temp Pulse Resp BP Pulse Ox 98.8 F 77 18 129/71 H 96 03/20/19 12:37 03/20/19 12:37 03/20/19 12:37 03/20/19 12:37 03/20/19 12:37 Interpretation: Normal - General General appearance: Appears well, Alert - HEENT Head: Normocephalic, Atraumatic Eyes: Normal Pupils: PERRL - Respiratory Respiratory status: No respiratory distress Chest status: Nontender Breath sounds: Normal Chest palpation: Normal - Cardiovascular Rhythm: Regular Heart sounds: Normal auscultation Murmur: No - Abdominal Inspection: Normal Distension: No distension Bowel sounds: Normal Tenderness: Nontender Organomegaly: No organomegaly - Back Back: Normal, Nontender - Extremities General upper extremity: Normal inspection, Nontender, Normal color, Normal ROM, Normal temperature General lower extremity: Normal inspection, Nontender, Normal color, Normal ROM, Normal temperature, Normal weight bearing. 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 Babinski reflex: Normal (flexor plantar) Sensory: Normal Biceps - Reflex grade: 2 = Normal Triceps - Reflex grade: 2 = Normal Brachioradialis - Reflex grade: 2 = Normal Knee - Reflex grade: 2 = Normal Ankle - Reflex grade: 2 = Normal - Psychological Associated symptoms: Normal affect, Normal mood - Skin Skin Temperature: Warm Skin Moisture: Dry Skin Color: Normal Course - Re-evaluation Re-evalutation: 03/21/19 03:23 After performing a Medical Screening Examination, I estimate there is LOW risk for ACUTE GLAUCOMA, TEMPORAL ARTERITIS, MENINGITIS, INCRANIAL HEMORRHAGE, or ISCHEMIC STROKE thus I consider the discharge disposition reasonable. I have reevaluated this patient multiple times and no significant life threatening changes are noted. The patient and I have discussed the diagnosis and risks, and we agree with discharging home with close follow-up with the understanding that symptoms and presentations can change. We also discussed returning to the Emergency Department immediately if new or worsening symptoms occur. We have discussed the symptoms which are most concerning (e.g., changing or worsening symptoms, new numbness or weakness, vomiting, fever) that necessitate immediate return. - Vital Signs Vital signs: Temp Pulse Resp BP Pulse Ox 97.8 F 85 17 108/94 H 100 03/20/19 16:17 03/20/19 16:17 03/20/19 16:17 03/20/19 16:17 03/20/19 16:17 - Laboratory Result Diagrams: 03/20/19 13:27 03/20/19 13:27 Laboratory results interpreted by me: 03/20/19 03/20/19 13:27 13:27 MCV 77 L MCH 25.3 L RDW 14.8 H Urine Urobilinogen 2.0 H Ur Leukocyte Esterase LARGE H - Diagnostic Test Radiology reviewed: Image reviewed, Reports reviewed Discharge - Discharge Clinical Impression: Migraine headache Qualifiers: Migraine type: unspecified Status migrainosus presence: without status migrainosus Intractability: not intractable Qualified Code(s): G43.909 - Migraine, unspecified, not intractable, without status migrainosus Condition: Stable Disposition: HOME, SELF-CARE Additional Instructions: HEADACHE: The physician does not feel that the headache you are experiencing has a serious underlying cause. Most headaches are due to emotional stress, with resultant muscle tension (tension headache). Occasionally, headaches are secondary to changes in the blood vessels of the scalp (vascular headache and migraine headache). Sometimes, a headache is the first symptom of another developing illness, such as a viral infection. You have no evidence of stroke, bleeding, meningitis, or other serious cause of your headache. The treatment of headaches varies with the severity and cause of the pain. Not all headaches need pain shots. In fact, there is evidence that using narcotics for headaches may make them worse in the long run. The physician will determine the therapy that's in your best interest. If you develop a fever, if the headache is different from any you've previously experienced, or if the headache progressively worsens, then call your physician at once or go to the emergency room. REGLAN (METOCLOPRAMIDE): Reglan has been prescribed. This medicine affects the stomach and intestines. It can be used to treat nausea and vomiting, to prevent reflux of stomach acid up into the esophagus, or to increase the contractions of the stomach and intestines. It is often prescribed for esophagitis, and for paralysis of the stomach in diabetics. Reglan can cause either mild restlessness or drowsiness. You should contact the doctor at once if you become extremely restless, anxious, or cannot sleep, or if you develop uncontrollable motions of the lips, tongue, or jaw. Do not take alcohol with this medicine. Do not drive or operate machinery until you have been taking this medicine long enough to know how it affects you. Call the doctor if you develop abdominal pains, lightheadedness, black stool, or blood in the stool or vomitus. USE OF DIPHENHYDRAMINE: Diphenhydramine (Benadryl) is an antihistamine and has been recommended to help treat your headache and to prevent side effects of other medications used to treat headaches. The medication can be repeated four times daily. Age Elixir (12.5 mg/tsp) 25 mg pill adult 1-2 tabs Antihistamines may cause drowsiness, especially with the first dose. Do not operate machinery or drive while under the effects of the medication. Do not combine the medication with alcohol, or with any other medication without talking to your doctor. ANTINAUSEA MEDICATION: You have been given a medication to suppress nausea and vomiting. This type of medication can be given as a shot, pill, or suppository. It will usually last for many hours. Pills and shots usually last six to eight hours, suppositories last about 12 hours. For the typical illness, only one or two doses of the medication may be necessary. Mild lightheadedness may occur. This type of medicine can cause drowsiness. Do not drive or operate dangerous machinery while under its influence. Do not mix with alcohol. See your doctor at once if you have muscle spasms or tightness, or uncontrollable motions (particularly of the neck, mouth, or jaw). Persistent vomiting or severe lightheadedness should also be evaluated by the physician. TORADOL INJECTION: You have been given an injection of ketorolac tromethamine (Toradol). This is an excellent, safe drug for pain control. It also has potent antiinflammatory action. You should have significant pain relief within about one hour. Toradol is not addicting and is non-sedating. It does not interfere with driving or work. Call or return if you develop itching, hives, shortness of breath, or rash. Ibuprofen Ibuprofen is an excellent, safe drug for pain control. In addition, it has potent antiinflammatory effects which are beneficial, especially in the treatment of injuries, arthritis, or tendonitis. It's best to take ibuprofen with food. Persons with ulcer disease or allergy to aspirin should notify their physician of this before taking ibuprofen. Take the medication exactly as prescribed. Don't take additional doses unless instructed to do so by your doctor. If you develop wheezing, shortness of breath, hives, faintness, stomach pain, vomiting, or dark black stools, return for re-evaluation at once. FOLLOW-UP CARE: If you have been referred to a physician for follow-up care, call the physicians office for an appointment as you were instructed or within the next two days. If you experience worsening or a significant change in your symptoms, notify the physician immediately or return to the Emergency Department at any time for re-evaluation. Prescriptions: Metoclopramide HCl [Reglan] 10 mg PO Q8HP PRN #20 tablet PRN Reason: For Headache Ibuprofen [Motrin 800 mg Tablet] 800 mg PO Q8H PRN #30 tab PRN Reason: Forms: Elevated Blood Pressure Referrals: MEHRDAD LINARES PA [Primary Care Provider] - Follow up as needed
[2019-03-20 16:19] VITALS: BP 108/94
--- NOTE | 2019-03-20 18:12 | EKG REPORT ---
SEVERITY:- OTHERWISE NORMAL ECG - SINUS ARRHYTHMIA, RATE 57-83 : Confirmed by: Kendrick Zuniga MD 20-Mar-2019 18:11:34
== END 2019-03-20 16:17 | disposition home or self-care (01) ==
LOC: ER 12:22
DX: G43.909 Migraine, unspecified, not intractable, without status migrainosus (principal); R11.0 Nausea; I10 Essential (primary) hypertension
CPT/HCPCS: 93005; 99284; 96361; 96374; 96375; 36415; 85025; 80053; 81001; 84484; 70450; 93010; J1200; J1885; J2765; J7030

== ENCOUNTER 2019-04-10 18:55 | Emergency (ER) | payer MEDICAID, OTHER ==
[2019-04-10 19:10] VITALS: BP 132/95
[2019-04-10] MEDS ORDERED: DIPHENHYDRAMINE HCL 50 MG CAPSULE PO ONE (20:13)
[2019-04-10] MEDS ORDERED: FAMOTIDINE 20 MG TABLET PO ONE (20:13)
[2019-04-10] MEDS ORDERED: PREDNISONE 20 MG TABLET PO ONE (20:13)
--- NOTE | 2019-04-10 20:16 | ER Document Report ---
HPI - HPI Patient complains to provider of: Skin rash Time Seen by Provider: 04/10/19 20:09 Onset: This morning Onset/Duration: Worse Pain Level: 0 Context: Patient complains of pruritic skin rash that developed this morning and gradually worsened throughout the day. Patient denies any new foods medications detergents. Patient denies any difficulty breathing. Associated Symptoms: Other - Skin rash. denies: Nonproductive cough, Productive cough, Fever, Headache, Nausea, Vomiting Exacerbated by: Denies Relieved by: Denies Similar symptoms previously: No Recently seen / treated by doctor: No - ROS ROS below otherwise negative: Yes Systems Reviewed and Negative: Yes All other systems reviewed and negative - CONSTITUTIONAL Constitutional: DENIES: Fever - EENT EENT: DENIES: Sore Throat - NEURO Neurology: DENIES: Headache - GASTROINTESTINAL Gastrointestinal: DENIES: Nausea, Patient vomiting - REPRODUCTIVE LMP: 8/end of/ irregular d/t control Reproductive: DENIES: : - DERM Skin Color: Normal Skin Problems: Rash Past Medical History - General Information source: Patient - Social History Smoking Status: Never Smoker Chew tobacco use (# tins/day): No Drug Abuse: None Occupation: None Lives with: Family Family History: Arthritis, CAD, COPD, CVA, DM, Hyperlipidemia, Hypertension, Malignancy Patient has suicidal ideation: No Patient has homicidal ideation: No - Past Medical History Cardiac Medical History: Reports: Hx Hypertension Pulmonary Medical History: Reports: Hx Asthma Neurological Medical History: Reports: Hx Migraine Renal/ Medical History: Denies: Hx Peritoneal Dialysis GI Medical History: Reports: Hx Irritable Bowel Psychiatric Medical History: Reports: Hx Anxiety, Hx Post Traumatic Stress Disorder Past Surgical History: Reports: Hx Section - Immunizations Hx Diphtheria, Pertussis, Tetanus Vaccination: Yes Vertical Provider Document - CONSTITUTIONAL Agree With Documented VS: Yes Exam Limitations: No Limitations General Appearance: WD/WN, No Apparent Distress - INFECTION CONTROL TRAVEL OUTSIDE OF THE [place] IN LAST 30 DAYS: No - HEENT HEENT: Atraumatic, Normocephalic Notes: No angioedema, no potential airway compromise - NECK Neck: Normal Inspection, Supple. negative: Lymphadenopathy-Left, Lymphadenopathy-Right - RESPIRATORY Respiratory: Breath Sounds Normal, No Respiratory Distress, Chest Non-Tender - CARDIOVASCULAR Cardiovascular: Regular Rate, Regular Rhythm, No Murmur - BACK Back: Normal Inspection - MUSCULOSKELETAL/EXTREMETIES Musculoskeletal/Extremeties: MAEW - NEURO Level of Consciousness: Awake, Alert, Appropriate Motor/Sensory: No Motor Deficit - DERM Integumentary: Warm, Dry, Rash - Diffuse maculopapular rash to trunk face and extremities Course - Re-evaluation Re-evalutation: 04/10/19 Shunt with diffuse rash that has developed gradually since this morning. Patient nontoxic in appearance. No concern for anaphylaxis. Discussed worsening signs or symptoms that patient should return immediately for. Patient agreeable with discharge plan of care at this time. - Vital Signs Vital signs: Temp Pulse Resp BP Pulse Ox 98.5 F 72 16 132/95 H 98 04/10/19 19:09 04/10/19 19:09 04/10/19 19:09 04/10/19 19:09 04/10/19 19:09 Discharge - Discharge Clinical Impression: Skin rash Condition: Stable Disposition: HOME, SELF-CARE Instructions: Steroid Medication Additional Instructions: Return immediately for any new or worsening symptoms Followup with your primary care provider, call tomorrow to make a followup appointment Prescriptions: Hydroxyzine HCl [Atarax 25 mg Tablet] 1 - 2 tab PO QID PRN #20 tablet PRN Reason: Prednisone [Deltasone 20 mg Tablet] 3 tab PO DAILY 5 Days tablet Famotidine [Pepcid 20 mg Tablet] 20 mg PO BID #12 tablet Referrals: MEHRDAD LINARES PA [Primary Care Provider] - Follow up tomorrow
== END 2019-04-10 20:27 | disposition home or self-care (01) ==
LOC: ER 18:55
DX: R21 Rash and other nonspecific skin eruption (principal); I10 Essential (primary) hypertension; J45.909 Unspecified asthma, uncomplicated
CPT/HCPCS: 99282; J7512

== ENCOUNTER 2019-04-13 16:44 | Emergency (ER) | payer OTHER ==
[2019-04-13] MEDS ORDERED: DIPHENHYDRAMINE HCL 25 MG CAPSULE PO ONE (17:00)
--- NOTE | 2019-04-13 17:04 | ER Document Report ---
ED Medical Screen (RME) - General Chief Complaint: Rash Stated Complaint: RE-VISIT/RASH, PAIN AND ITCHING Time Seen by Provider: 04/13/19 16:56 Primary Care Provider: MEHRDAD LINARES PA [Primary Care Provider] - Follow up as needed Mode of Arrival: Ambulatory Information source: Patient Notes: This 28-year-old female returns with complaints of itchy rash. Reports that spreading. Which she reports she was evaluated in the emergency department couple days ago and reports the rash is worse. Denies fever vomiting diarrhea. Reports she is only one in the family with the rash. Denies new medications new lotions. Macular rash noted generalized to her trunk and arms. No open sores or wounds. Patient has not taken any Benadryl. Just got out of the shower. I have greeted and performed a rapid initial assessment of this patient. A comprehensive ED assessment and evaluation of the patient, analysis of test results and completion of the medical decision making process will be conducted by additional ED providers. Dictation of this chart was performed using voice recognition software; therefore, there may be some unintended grammatical errors. TRAVEL OUTSIDE OF THE [place] IN LAST 30 DAYS: No - Related Data Allergies/Adverse Reactions: No Known Allergies Allergy (Verified 10/12/18 18:29) Past Medical History - Social History Chew tobacco use (# tins/day): No Frequency of alcohol use: None Drug Abuse: None - Past Medical History Cardiac Medical History: Reports: Hx Hypertension Pulmonary Medical History: Reports: Hx Asthma Neurological Medical History: Reports: Hx Migraine Renal/ Medical History: Denies: Hx Peritoneal Dialysis GI Medical History: Reports: Hx Irritable Bowel Psychiatric Medical History: Reports: Hx Anxiety, Hx Post Traumatic Stress Disorder Past Surgical History: Reports: Hx Section - Immunizations Hx Diphtheria, Pertussis, Tetanus Vaccination: Yes Physical Exam - Vital signs Vitals: Temp Pulse Resp BP Pulse Ox 98.3 F 67 18 133/92 H 97 04/13/19 16:49 04/13/19 16:49 04/13/19 16:49 04/13/19 16:49 04/13/19 16:49 Course - Vital Signs Vital signs: Temp Pulse Resp BP Pulse Ox 98.3 F 67 18 133/92 H 97 04/13/19 16:49 04/13/19 16:49 04/13/19 16:49 04/13/19 16:49 04/13/19 16:49 Doctor's Discharge - Discharge Referrals: MEHRDAD LINARES PA [Primary Care Provider] - Follow up as needed
--- NOTE | 2019-04-13 18:16 | ER Document Report ---
ED Skin Rash/Insect Bite/Abscs - General Chief Complaint: Rash Stated Complaint: RE-VISIT/RASH, PAIN AND ITCHING Time Seen by Provider: 04/13/19 16:56 Primary Care Provider: MEHRDAD LINARES PA [Primary Care Provider] - Follow up as needed Mode of Arrival: Ambulatory Information source: Patient Notes: 28-year-old female presents to ED for complaint of a itchy rash that she has been seen for a couple days ago. She states the rash continues to spread and it continues to itch. She states she has been taking all her medications as prescribed and she is not getting any better. She states she did change her laundry to her detergent from gain to help. p You are purex before the rash started. [facility] with her fluxer. TRAVEL OUTSIDE OF THE [place] IN LAST 30 DAYS: No - HPI Patient complains to provider of: Skin rash/lesion Onset: Other - 04/10/2019 Onset/Duration: Persistent, Worse Quality of pain: No pain Severity: None Pain Level: Denies Skin Character: Macules, Papules, Rash Quality of rash: Itchy Identify cause: No Other exposure: Detergent Exacerbated by: Denies Relieved by: Denies Similar symptoms previously: Yes Recently seen / treated by doctor: Yes - Related Data Allergies/Adverse Reactions: No Known Allergies Allergy (Verified 10/12/18 18:29) Past Medical History - General Information source: Patient - Social History Smoking Status: Never Smoker Chew tobacco use (# tins/day): No Frequency of alcohol use: None Drug Abuse: None Lives with: Family Family History: Arthritis, CAD, COPD, CVA, DM, Hyperlipidemia, Hypertension, Malignancy Patient has suicidal ideation: No Patient has homicidal ideation: No - Past Medical History Cardiac Medical History: Reports: Hx Hypertension Pulmonary Medical History: Reports: Hx Asthma EENT Medical History: Reports: None Neurological Medical History: Reports: Hx Migraine Endocrine Medical History: Reports: None Renal/ Medical History: Reports: None Malignancy Medical History: Reports: None GI Medical History: Reports: Hx Irritable Bowel Musculoskeletal Medical History: Reports None Skin Medical History: Reports None Psychiatric Medical History: Reports: Hx Anxiety, Hx Depression, Hx Post Traumatic Stress Disorder Traumatic Medical History: Reports: None Infectious Medical History: Reports: None Past Surgical History: Reports: Hx Section - Immunizations Hx Diphtheria, Pertussis, Tetanus Vaccination: Yes Review of Systems - Review of Systems Constitutional: No symptoms reported EENT: No symptoms reported Cardiovascular: No symptoms reported Respiratory: No symptoms reported Gastrointestinal: No symptoms reported Genitourinary: No symptoms reported Female Genitourinary: No symptoms reported Musculoskeletal: No symptoms reported Skin: No symptoms reported Hematologic/Lymphatic: No symptoms reported Neurological/Psychological: No symptoms reported -: Yes All other systems reviewed and negative Physical Exam - Vital signs Vitals: Temp Pulse Resp BP Pulse Ox 98.3 F 67 18 133/92 H 97 04/13/19 16:49 04/13/19 16:49 04/13/19 16:49 04/13/19 16:49 04/13/19 16:49 Interpretation: Normal - General General appearance: Appears well, Alert - HEENT Head: Normocephalic, Atraumatic Eyes: Normal Pupils: PERRL - Respiratory Respiratory status: No respiratory distress Chest status: Nontender Breath sounds: Normal Chest palpation: Normal - Cardiovascular Rhythm: Regular Heart sounds: Normal auscultation Murmur: No - Abdominal Inspection: Normal Distension: No distension Bowel sounds: Normal Tenderness: Nontender Organomegaly: No organomegaly - Back Back: Normal, Nontender - Extremities General upper extremity: Normal inspection, Nontender, Normal color, Normal ROM, Normal temperature General lower extremity: Normal inspection, Nontender, Normal color, Normal ROM, Normal temperature, Normal weight bearing. No: Angelika's sign - Neurological Neuro grossly intact: Yes Cognition: Normal Orientation: AAOx4 Nick Coma Scale Eye Opening: Spontaneous Nick Coma Scale Verbal: Oriented Superior Coma Scale Motor: Obeys Commands Superior Coma Scale Total: 15 Speech: Normal Motor strength normal: LUE, RUE, LLE, RLE Sensory: Normal - Psychological Associated symptoms: Normal affect, Normal mood - Skin Skin Temperature: Warm - I would like Skin Moisture: Dry Skin Color: Normal Location of irregularity: Generalized Character of irregularity: Maculopapular Course - Re-evaluation Re-evalutation: 04/13/19 18:21 Patient has been prescribed promethazine as an attempt to help with her itching. She is instructed to continue with her medications she has been prescribed to change her laundry detergent back to gain to use cool showers is warm will make the itching worse and to Stop scratching. Patient was discharged home after she was able to verbalize understanding and agreement with treatment plan - Vital Signs Vital signs: Temp Pulse Resp BP Pulse Ox 98.3 F 67 18 133/92 H 97 04/13/19 16:49 04/13/19 16:49 04/13/19 16:49 04/13/19 16:49 04/13/19 16:49 Discharge - Discharge Clinical Impression: Skin rash Condition: Stable Disposition: HOME, SELF-CARE Additional Instructions: ACUTE ALLERGIC REACTION: Your symptoms are due to an allergic reaction. Allergy can cause hives, swelling of the hands, feet, and face, hoarseness, and difficulty swallowing or breathing. It may be due to exposure to medication, animal dander, foods, infection, or insect bites. Medication is a common cause, even when prior use of this same medication caused no problems. Acute treatment may include adrenalin and antihistamines. Usually, the specific allergic agent can't be identified unless repeated episodes occur. Home treatment includes the following: (1) Stop any suspicious medications. This will be discussed with you. (2) Oral antihistamines for the next four to five days. Example, diphenhydramine (Benadryl) every four hours. (3) You may also use cimetidine (Tagamet), ranitidine (Zantac), or famotidine (Pepcid) every four hours if diphenhydramine is not controlling itching and hives. (4) Avoid aspirin until the hives completely disappear. (5) Avoid hot baths or showers until the hives are completely gone. Call the doctor if faintness, difficulty swallowing, tightness in the chest, or wheezing occurs. STEROID MEDICATION: Continue taking your prednisone as prescribed. This medication is used to control inflammation or allergy. It is usually only given for a short period of time, until the acute process subsides. There are usually no side effects from short-term use of cortisone-like medications. Some persons feel an increased sense of well-being and are not sleepy at bedtime. Long-term use of cortisone medications is best avoided, unless required for a severe condition. If your condition does not remit, or relapses after the course of corticosteroid medication, you should consult your physician. ACID-SUPPRESSING MEDICATION: Continue taking your Pepcid as prescribed. Examples include Zantac, Tagament, and Pepcid. These drugs are often used to allow healing of ulcers or esophagitis. They may be needed to prevent recurrence of ulcers in some patients, or to prevent damage from acid reflux in the esophagus. Take all medication as prescribed, even after the pain is gone. Regular antacids may be added as needed if you have symptoms while taking this medicine. These medications sometimes are prescribed for allergic reactions because they have anti-histaminic effects and relieve the rash and itching of the reaction. There are usually no side effects from this medication. But, in rare cases and particularly in the elderly, serious problems can occur. Contact your doctor if there is fever, rash, hallucinations, confusion, or unusual bruising. Contact your doctor at once if you develop lightheadedness, black or bloody stool, or bloody vomitus. ANTIHISTAMINES: Continue taking your hydroxyzine as prescribed. Antihistamines are used for many reasons, including itching, watering eyes, runny nose, allergic swelling, hives, and insect stings. Antihistamines may cause drowsiness, especially with the first dose. Do not operate machinery or drive while under the effects of the medication. Other common side effects include dry mouth and eyes. In older persons, antihistamines can occasionally cause urinary retention, constipation, and trouble focusing the eyes. Do not combine the medication with alcohol, or with any other medication without talking to your doctor. USE OF DIPHENHYDRAMINE: The use of diphenhydramine (Benadryl) has been recommended to control allergic symptoms. The 25 mg strength is available over- the-counter, as well as the elixir. This antihistamine is used for many symptoms. It's useful for itching, watering eyes and nose, allergic swelling, hives, and insect stings. The medication can be repeated four times daily. Age Elixir (12.5 mg/tsp) 25 mg pill 2-3 yr 1/2 tsp 4-8 yr 1 tsp 9-14 yr 2 tsp one tab adult 1-2 tabs Antihistamines may cause drowsiness, especially with the first dose. Do not operate machinery or drive while under the effects of the medication. Do not combine the medication with alcohol, or with any other medication without talking to your doctor. FOLLOW-UP CARE: If you have been referred to a physician for follow-up care, call the physicians office for an appointment as you were instructed or within the next two days. If you experience worsening or a significant change in your symptoms, notify the physician immediately or return to the Emergency Department at any time for re-evaluation. Prescriptions: Permethrin [Elimite] 60 gm TP ONCE PRN 1 Days #60 cream.gm. PRN Reason: Forms: Elevated Blood Pressure Referrals: MEHRDAD LINARES PA [Primary Care Provider] - Follow up tomorrow
[2019-04-13 18:27] VITALS: BP 117/95
== END 2019-04-13 18:27 | disposition home or self-care (01) ==
LOC: ER 16:44
DX: R21 Rash and other nonspecific skin eruption (principal); L29.9 Pruritus, unspecified; J45.909 Unspecified asthma, uncomplicated; I10 Essential (primary) hypertension